=== PATIENT | male | born 1930 | race Caucasian/White ===

== ENCOUNTER 2017-03-04 21:05 | Inpatient (IN) | payer MEDICARE, BC ==
[~2017-03-04] VITALS: Ht 185.4 cm; Wt 90.7 kg
--- NOTE | 2017-03-04 22:17 | NUR ---
PT ARRIVED BY AMBULANCE FROM [facility], PT SITTING UP IN BED A&0 X4. STATED PRESSURE IN LEFT SIDE OF CHEST CAUSING PAIN AND PAIN IS AT A 7 FROM SCALE OF 0-10. ASKED PT TO CHANGE INTO HOSPITAL GOWN WHILE I CALLED ER REGISTRAR FOR FURTHER ORDERS
--- NOTE | 2017-03-04 23:12 | NUR ---
SPOKE TO IVON IN REGARDS TO DIRECT ADMIT. 10MG OF HYDROCODONE ORDERED Q6 PRN PAIN, ADVISED TO CONSULT RENE AND SURGERY IN CASE NEEDED TO HAVE FLUID DRAINED. SPOKE TO RENE AND ADVISED TO HAVE CHEST XRAY DONE IN THE MORNING,
[2017-03-04] MEDS ORDERED: FLOMAX0.4 MG PO (23:30)
[2017-03-04] MEDS ORDERED: METOPROLOL TART25 MG PO (23:31)
[2017-03-04] MEDS ORDERED: ICAPS AREDS1 TAB.SA PO (23:32)
[2017-03-04] MEDS ORDERED: ICAPS MV TAB1 TAB.EC PO (23:33)
[2017-03-04 23:37] VITALS: BP 139/76; BMI 26.4
[2017-03-04] MEDS ORDERED: ZOCOR80 MG PO (23:37)
[2017-03-04] MEDS ORDERED: ASPIRIN81 MG PO (23:38)
[2017-03-05 04:00] VITALS: BP 141/80
--- NOTE | 2017-03-05 07:15 | NUR ---
REPORT RECEIVED FROM HAM SMOKER NURSE. CALL LIGHT IN REACH.
[2017-03-05 08:15] VITALS: BP 122/80
--- NOTE | 2017-03-05 09:15 | NUR ---
ASSESSMENT COMPLETED. CALL LIGHT IN REACH. WILL CONTINUE WITH PLAN OF CARE.
[2017-03-05 10:37] LABS: BASOPHILS 0.7 % (0-2); EOSINOPHILS 2.3 % (0-7); HEMATOCRIT 36.1 % (42.0-54.0); HEMOGLOBIN 11.6 g/dL (13.5-17.5); IMMATURE GRANULOCYTES 0.1 % (0-5); LYMPHOCYTES 14.8 % (15-50); MCH 29.6 pg (26.0-34.0); MCHC 32.1 g/dL (31.0-37.0); MCV 92.1 fL (80.0-100.0); MEAN PLATELET VOLUME 8.5 fL (7.4-10.4); MONOCYTES 12.7 % (2-11); NEUTROPHILS 69.4 % (40-80); PLATELET COUNT 325 10x3/uL (130-400); RBC 3.92 10x6/uL (4.20-6.10); RDW 14.3 % (11.5-14.5); WBC 9.1 10x3/uL (4.8-10.8)
[2017-03-05 10:58] LABS: APTT 29.3 SECONDS (22.8-39.4); INR 1.07 (0.85-1.17); PROTIME 13.7 SECONDS (11.6-15.0)
[2017-03-05 11:00] LABS: ALBUMIN 2.7 g/dL (3.4-5.0); ANION GAP 10.8 mmol/L (8-16); BILIRUBIN - TOTAL 0.6 mg/dL (0.2-1.3); CALCIUM 8.8 mg/dL (8.5-10.1); CARBON DIOXIDE 27.6 mmol/L (21.0-32.0); CREATININE - SERUM 1.2 mg/dL (0.6-1.3); POTASSIUM - SERUM 4.4 mmol/L (3.5-5.1)
--- NOTE | 2017-03-05 11:10 | NUR ---
DENIES NEEDS AT THIS TIME. CALL LIGHT IN REACH. IN ROOM.
--- NOTE | 2017-03-05 12:22 | NUR ---
AM MEDS ADMINISTERED. CALL LIGHT IN REACH. AT BEDSIDE.
[2017-03-05 12:33] VITALS: BP 129/71
[2017-03-05 12:34] VITALS: Ht 185.4 cm; Wt 90.7 kg
--- NOTE | 2017-03-05 13:07 | NUR ---
RESTING QUIETLY IN BED. VISITING WITH FAMILY.
--- NOTE | 2017-03-05 14:40 | NUR ---
TO SPECIALS VIA BED.
--- NOTE | 2017-03-05 15:42 | NUR ---
BACK IN ROOM AT THIS TIME. SPEECH IN ROOM FOR SWALLOW STUDY.
--- NOTE | 2017-03-05 16:09 | NUR ---
C/O PAIN OF 5 AND REQUESTING PAIN PILL. INFORMED PATIENT THAT HE CAN ONLY HAVE THE PAIN PILL EVERY 6 HOURS AND IT IS TOO SOON. MORPHINE [address] ROOM[address] LÓPEZ ALSO IN ROOM TO SPEAK WITH PATIENT.
[2017-03-05 16:17] VITALS: BP 122/70
--- NOTE | 2017-03-05 18:55 | NUR ---
[place] HAT PLACED IN BR FOR STOOL SAMPLE, SPUTUM CUP GIVEN TO PATIENT FOR SAMPLE, AND IS GIVEN TO PATIENT WITH RETURN DEMONSTRATION. NO OTHER CHANGES IN INITIAL ASSESSMENT. CALL LIGHT IN REACH. IN ROOM. WILL CONTINUE WITH PLAN OF CARE.
[2017-03-05 19:40] LABS: NEUT - BF 10 %
[2017-03-05 20:00] VITALS: BP 104/59
[2017-03-06] VITALS: BP 110/62
[2017-03-06 04:00] VITALS: BP 101/59
[2017-03-06 05:47] LABS: BASOPHILS 0.2 % (0-2); EOSINOPHILS 1.4 % (0-7); HEMATOCRIT 33.7 % (42.0-54.0); HEMOGLOBIN 11.1 g/dL (13.5-17.5); IMMATURE GRANULOCYTES 0.1 % (0-5); LYMPHOCYTES 12.2 % (15-50); MCH 30.1 pg (26.0-34.0); MCHC 32.9 g/dL (31.0-37.0); MCV 91.3 fL (80.0-100.0); MEAN PLATELET VOLUME 8.8 fL (7.4-10.4); MONOCYTES 11.6 % (2-11); NEUTROPHILS 74.5 % (40-80); PLATELET COUNT 334 10x3/uL (130-400); RBC 3.69 10x6/uL (4.20-6.10); RDW 14.1 % (11.5-14.5); WBC 9.4 10x3/uL (4.8-10.8)
[2017-03-06 06:22] LABS: % SATURATION 10 % (15-55); IRON 21 ug/dl (35-150); TOTAL IRON BIND CAPACITY 197 ug/dl (260-445); UNSAT IRON BIND CAPACITY 176 ug/dl (150-375)
[2017-03-06 06:37] LABS: ALBUMIN 2.4 g/dL (3.4-5.0); ANION GAP 12.9 mmol/L (8-16); BILIRUBIN - TOTAL 0.5 mg/dL (0.2-1.3); C-REACTIVE PROTEIN 3.1 mg/dL (0.0-0.9); CALCIUM 8.4 mg/dL (8.5-10.1); CARBON DIOXIDE 25.3 mmol/L (21.0-32.0); CREATININE - SERUM 1.4 mg/dL (0.6-1.3); POTASSIUM - SERUM 4.2 mmol/L (3.5-5.1); PROTEIN - SERUM 6.2 g/dL (6.4-8.2)
[2017-03-06 07:58] VITALS: BP 110/60
--- NOTE | 2017-03-06 08:45 | NUR ---
ASSESSMENT PER FLOW SHEET.PT WITHOUT DISTRESS. DENIES NEEDS AT PRESENT.PAIN 7/10 TO LEFT SIDE,PAIN MEDS ORDERED PER MAR.CALL LIGHT IN REACH
[2017-03-06 12:43] VITALS: BP 129/54
[2017-03-06 15:49] VITALS: BP 109/63
--- NOTE | 2017-03-06 18:33 | NUR ---
REMAINS WITHOUT NEEDS,WITHOUT CANGE.CONT PLAN OF CARE
[2017-03-06 20:00] VITALS: BP 97/59
[2017-03-07] VITALS: BP 100/60
[2017-03-07 04:00] VITALS: BP 116/65
[2017-03-07 05:56] LABS: BASOPHILS 0.3 % (0-2); EOSINOPHILS 3.3 % (0-7); HEMATOCRIT 34.7 % (42.0-54.0); IMMATURE GRANULOCYTES 0.2 % (0-5); LYMPHOCYTES 13.4 % (15-50); MCH 29.1 pg (26.0-34.0); MCHC 31.7 g/dL (31.0-37.0); MCV 91.8 fL (80.0-100.0); MEAN PLATELET VOLUME 8.6 fL (7.4-10.4); MONOCYTES 13.5 % (2-11); NEUTROPHILS 69.3 % (40-80); PLATELET COUNT 334 10x3/uL (130-400); RBC 3.78 10x6/uL (4.20-6.10); RDW 14.3 % (11.5-14.5)
[2017-03-07 06:39] LABS: ALBUMIN 2.5 g/dL (3.4-5.0); ANION GAP 11.7 mmol/L (8-16); BILIRUBIN - TOTAL 0.51 mg/dL (0.2-1.3); CALCIUM 8.5 mg/dL (8.5-10.1); CARBON DIOXIDE 26.4 mmol/L (21.0-32.0); CREATININE - SERUM 1.3 mg/dL (0.6-1.3); POTASSIUM - SERUM 4.1 mmol/L (3.5-5.1); PROTEIN - SERUM 6.1 g/dL (6.4-8.2)
[2017-03-07 08:30] VITALS: BP 99/63
--- NOTE | 2017-03-07 09:05 | NUR ---
REPORT RECEIVED FROM MARIANELA OSWALD.
[2017-03-07 09:08] LABS: AFB SPECIMEN PROCESSING Concentration (())
--- NOTE | 2017-03-07 10:30 | NUR ---
ASSESSMENT COMPLETED. AM MEDS ADMINISTERED. CALL LIGHT IN REACH. WILL CONTINUE WITH PLAN OF CARE.
--- NOTE | 2017-03-07 12:05 | NUR ---
NOON MEDS ADMINISTERED PER ORDER. AT BEDSIDE. CALL LIGHT IN REACH.
[2017-03-07 12:12] VITALS: BP 117/67
--- NOTE | 2017-03-07 12:17 | NUR ---
REQUESTING MORPHINE IV. ADMINISTERED PER ORDER.
--- NOTE | 2017-03-07 13:20 | NUR ---
NO NEEDS VOICED AT THIS TIME. CALL LIGHT IN REACH.
--- NOTE | 2017-03-07 15:45 | NUR ---
MORPHINE 2 MG SIVP PER C/O PAIN OF 8. CALL LIGHT IN REACH.
[2017-03-07 16:08] VITALS: BP 114/58
--- NOTE | 2017-03-07 17:49 | NUR ---
STOOL SAMPLE COLLECTED AND SENT TO LAB FOR OB.
--- NOTE | 2017-03-07 18:13 | NUR ---
NO CHANGES IN INITIAL ASSESSMENT. CALL LIGHT IN REACH. WILL CONTINUE WITH PLAN OF CARE.
[2017-03-07 20:34] VITALS: BP 102/63
[2017-03-08] VITALS (9 sets, daily range): BP systolic 101–131; BP diastolic 62–71
--- NOTE | 2017-03-08 02:00 | NUR ---
PT C/O LEFT CHEST PAIN 8/10 AND DIFFICULY URINATING. GAVE MORPHINE 2 MG IVP AND BLADDER SCANNED 784 ML. CALLED ELECTRICAL REPAIRER, TUSHAR TO REQUEST ORDER FOR ZAMORA FROM ER DOCTOR. WAITING RESPONSE.
--- NOTE | 2017-03-08 02:56 | NUR ---
PERFORMED IN/OUT CATH. RECEIVED BACK APPROX 750 MLS STRAW COLOR URINE. SENT SPECIMEN TO LAB FOR UA. PT SAY HE "FEELS RELIEVED." NO OTHER NEEDS. WILL CONTINUE TO MONITOR.
[2017-03-08 03:21] LABS: APPEARANCE CLEAR (CLEAR); BILIRUBIN NEGATIVE (NEGATIVE); COLOR YELLOW (YELLOW); GLUCOSE NEGATIVE (NEGATIVE); KETONE NEGATIVE (NEGATIVE); NITRITE NEGATIVE (NEGATIVE); PROTEIN NEGATIVE (NEGATIVE); UROBILINOGEN NORMAL (NORMAL); WHITE CELLS - URINE NSEEN /hpf (0-5)
[2017-03-08 05:07] LABS: BASOPHILS 0.4 % (0-2); EOSINOPHILS 4.6 % (0-7); HEMATOCRIT 34.1 % (42.0-54.0); HEMOGLOBIN 10.9 g/dL (13.5-17.5); IMMATURE GRANULOCYTES 0.3 % (0-5); LYMPHOCYTES 11.3 % (15-50); MCH 29.3 pg (26.0-34.0); MCV 91.7 fL (80.0-100.0); MEAN PLATELET VOLUME 8.5 fL (7.4-10.4); MONOCYTES 13.8 % (2-11); NEUTROPHILS 69.6 % (40-80); PLATELET COUNT 323 10x3/uL (130-400); RBC 3.72 10x6/uL (4.20-6.10); RDW 14.4 % (11.5-14.5)
[2017-03-08 05:19] LABS: ALBUMIN 2.5 g/dL (3.4-5.0); ANION GAP 14.4 mmol/L (8-16); BILIRUBIN - TOTAL 0.5 mg/dL (0.2-1.3); CALCIUM 8.6 mg/dL (8.5-10.1); CARBON DIOXIDE 23.6 mmol/L (21.0-32.0); CREATININE - SERUM 1.2 mg/dL (0.6-1.3); PROTEIN - SERUM 6.2 g/dL (6.4-8.2)
[2017-03-08 07:43] LABS: INR 1.1 (0.85-1.17); PROTIME 14.1 SECONDS (11.6-15.0)
[2017-03-08 07:44] LABS: APTT 35.6 SECONDS (22.8-39.4)
--- NOTE | 2017-03-08 08:09 | NUR ---
AWAKE AND ALERT. ORIENTED X3. C/O PAIN TO LEFT SIDE OF CHEST FROM "FLUID". REQUESTED AND GIVEN 2MG MORPHINE SLOW IVP FOR SAME. WILL MONITOR. LUNGS ARE CLEAR ON RIGHT BUT DIMINISHED ON LEFT. NO COUGH NOTED. SKIN IS INTACT WITHOUT REDNESS. IV TO LEFT FOREARM IS PATNET WITHOUT REDNESS AT INSERTION SITE. DENIES NEEDS.
--- NOTE | 2017-03-08 09:57 | NUR ---
OFF UNIT VIA BED FOR PROCEDURE. AT BEDSIDE.
--- NOTE | 2017-03-08 10:01 | NUR ---
PT NOT AVAILABLE AT THE TIME FOR UPDRAFT TX
[2017-03-08 10:12] LABS: ANA REFLEX - DIRECT Negative (Negative)
--- NOTE | 2017-03-08 10:48 | NUR ---
Patient Name: ROMI SARABIA Admission Status: Elective Accout number: [id number] Admission Date: 03-04-2017 : 1930 Admission Diagnosis:PLEURAL EFFUSION, NOT ELSEWHERE CLASSIFIED Attending: BEATRIZ HYDE Current LOS: 4 Anticipated DC Date: Planned Disposition: Home or Self Care Primary Insurance: MEDICARE A & B Discharge Planning Comments: CM met with patient to assess discharge planning needs. Patient's (Velma) was in the room. Patient stated that he lives independently at home in [place] where he plans to return. 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 Patient states that he has a cane, walker, wheelchair and a shower chair at home. He denies any HH and not sure he will need it at discharge. CM will continue to follow and assist as needed with discharge planning needs. PCP: Feli Perez in [place] Vel[place]- [phone] Plant Operator: Lorrie Lee * Is the patient Alert and Oriented? Yes 0 * How many steps to enter\exit or inside your home? 0 0 * PCP feli 0 * Pharmacy [facility] in [place] 0 * Preadmission Environment Home with Family 0 * ADLs Independent 0 * Equipment Cane Rolling Walker Shower Chair Walker Wheelchair 0 * List name and contact numbers for known caregivers / representatives who currently or will assist patient after discharge: Velma () [phone] 0 * Community resources currently utilized None 0 * Additional services required to return to the preadmission environment? Yes 0 * Can the patient safely return to the preadmission environment? Yes
--- NOTE | 2017-03-08 10:50 | NUR ---
CATH RETURNED 900 cc CLEAR YELLOW URINE. SKIN CARE PER STAFF.
--- NOTE | 2017-03-08 11:03 | NUR ---
RETURNED FROM PROCEDURE. SPOKE WITH [facility]. I/O CATH AT THIS TIME USING STERILE TECHNIQUE.
--- NOTE | 2017-03-08 12:00 | NUR ---
ATE ALL OF LUNCH TRAY. AT BEDSIDE. HAS NOT VOIDED OF YET. FLOMAX GIVEN PER ORDERS. WILL MONITOR.
--- NOTE | 2017-03-08 13:18 | NUR ---
NUTRITION F/U CHART REVIEWED. TOLERATING REG DIET WITH GOOD PO INTAKE LUNCH PER NURSING REPORT. WILL CONTINUE TO PROVIDE DIET, HONOR FOOD PREFERENCES. RD FOLLOWING
--- NOTE | 2017-03-08 13:30 | NUR ---
VOIDED 150cc CLEAR YELLOW URINE WITH TRACES OF BLOOD NOTED. DENIES NEEDS FOR NOW.
--- NOTE | 2017-03-08 16:00 | NUR ---
REPORTED UP TO BR PER SELF. UNABLE TO CONTROL URINE FLOW. STATED HE FEELS BETTER NOW THAT HE HAS URINATED. NO FURTHER C/O ABDOMINAL/PELVIC PAIN. WILL CONTINUE TO MONITOR.
--- NOTE | 2017-03-08 18:00 | NUR ---
RESTING QUIETLY IN BED. DENIES NEEDS. NO CHANGES NOTED.
--- NOTE | 2017-03-09 02:56 | NUR ---
2000) REC'D. IN BED DR. PANDA HERE NEW ORDERS REC'D.STATES FEELS SO MUCH BETTER. WILL CONTINUE TO MONITOR FOR ANY CHGES. AND FOLLOW CURRENT PLAN OF CARE.
[2017-03-09 04:00] VITALS: BP 127/74
[2017-03-09 05:30] LABS: BASOPHILS 0.2 % (0-2); EOSINOPHILS 3.9 % (0-7); HEMATOCRIT 33.3 % (42.0-54.0); HEMOGLOBIN 10.7 g/dL (13.5-17.5); IMMATURE GRANULOCYTES 0.2 % (0-5); LYMPHOCYTES 12.7 % (15-50); MCH 29.6 pg (26.0-34.0); MCHC 32.1 g/dL (31.0-37.0); MEAN PLATELET VOLUME 8.7 fL (7.4-10.4); MONOCYTES 11.9 % (2-11); NEUTROPHILS 71.1 % (40-80); PLATELET COUNT 339 10x3/uL (130-400); RBC 3.62 10x6/uL (4.20-6.10); RDW 14.3 % (11.5-14.5); WBC 8.5 10x3/uL (4.8-10.8)
[2017-03-09 06:01] LABS: ALBUMIN 2.2 g/dL (3.4-5.0); ANION GAP 12.8 mmol/L (8-16); BILIRUBIN - TOTAL 0.59 mg/dL (0.2-1.3); CALCIUM 8.4 mg/dL (8.5-10.1); CARBON DIOXIDE 25.4 mmol/L (21.0-32.0); CREATININE - SERUM 1.2 mg/dL (0.6-1.3); POTASSIUM - SERUM 4.2 mmol/L (3.5-5.1)
--- NOTE | 2017-03-09 07:00 | NUR ---
REPORT RECIEVED ASSUMED CARE. PATIENT IN BED WITH IV INTACT. NO COMPLAINTS AT THIS TIME. STATED WOULD LIKE PAIN MED WHEN AVAILABLE. CALL LIGHT WITHIN REACH.
[2017-03-09 08:09] VITALS: BP 138/80
--- NOTE | 2017-03-09 08:15 | NUR ---
ASSESSMENT COMPLETE, VS STABLE. NO COMPLAINTS AT THIS TIME. IV INTACT. CALL LIGHT WITHIN REACH.D RESSING TO BACK CDI.
--- NOTE | 2017-03-09 12:00 | NUR ---
PATIENT SITTING UP EATING AT THIS TIME. NO COMPLAINTS. FAMILY AT BEDSIDE. CALL LIGHT WITHIN REACH.
[2017-03-09 12:43] VITALS: BP 105/58
[2017-03-09] MEDS ORDERED: LEVAQUIN750 MG PO (13:36)
[2017-03-09] MEDS ORDERED: IPRAT-ALBUT 0.5-3 ML UPD ×3 (13:36→16:15)
[2017-03-09] MEDS ORDERED: TESSALON PERLE100 MG PO (13:37)
[2017-03-09] MEDS ORDERED: FERREX 150 PLUS1 CAP PO (13:37)
[2017-03-09] MEDS ORDERED: FLORAJEN3 CAPS460 MG PO (13:38)
[2017-03-09] MEDS ORDERED: FLUTICASONE PRO16 GM NASAL (13:38)
[2017-03-09] MEDS ORDERED: MUCINEX DM ER1 EAC1 PO (13:38)
[2017-03-09] MEDS ORDERED: MIRALAX17 GM PO (13:39)
[2017-03-09] MEDS ORDERED: PROTONIX40 MG PO (13:39)
[2017-03-09] MEDS ORDERED: SENOKOT-S TABLE1 TAB PO (13:41)
[2017-03-09] MEDS ORDERED: OMNICEF300 MG PO (13:41)
[2017-03-09] MEDS ORDERED: HYDROCODONE-APA1 TAB PO (13:51)
--- NOTE | 2017-03-09 14:25 | NUR ---
Patient being discharged home with [facility] ([facility]) signed. Patient also being discharged with a nebulizer. faxed information to [facility]. Imm served. at bedside.
--- NOTE | 2017-03-09 15:00 | NUR ---
AWAITING DR. PANDA TO SIGN PRESCRIPTION FOR DC. NO COMPLAINTS OR SIGNS OF DISTRESS. FAMILY AT BEDSIDE. CALL LIGHT WITHIN REACH.
--- NOTE | 2017-03-09 16:12 | NUR ---
Rec'd call from Yolande with [facility] - she states Dr. Rodarte will not sign home health orders until patient has been seen in the clinic by Dr. Rodarte. I called and spoke with nurse, Milena, at Dr. Rodarte's office. She stated patient would have to be seen prior to home health orders being signed. Patient was scheduled for an initial visit but missed it due to being in the hospital. He was rescheduled for 03/16 @ 1015. Explained patient status & hospitalization - appointment was changed to , 03/11 @ 1400. Milena states they will contact [facility] after they patient on . Notified patient & spouse of appointment change.
[2017-03-09 16:20] VITALS: BP 124/63
--- NOTE | 2017-03-09 17:27 | NUR ---
PATIENT RECIEVED DC INSTRUCTIONS. VERBALIZED UNDERSTANDING. NO QUESTIONS AT THIS TIME. FAMILY AT SIDE. IV REMOVED WITH CATH TIP INTACT. FLU SHOT GIVEN ORDERED. AWAITING WC FOR DC. CALL LIGHT WITHIN REACH.
[2017-03-10 10:20] LABS: FUNGUS STAIN Final report (())
[2017-04-05 13:12] LABS: FUNGUS MYCOLOGY CULTURE Final report (())
[2017-04-23 11:18] LABS: ACID FAST CULTURE Negative (()); ACID FAST SMEAR Negative (())
== END 2017-03-09 17:39 | disposition home or self-care (01) | DRG 194 ==
LOC: D.M2 21:05 → D.MS 22:13
PROVIDERS: General Practice; Internal Medicine Pulmonary Disease; ADMIT Family Medicine
PROC: 0W9B3ZZ Drainage of Left Pleural Cavity, Percutaneous Approach (ICD-10-PCS; principal; 2017-03-05 15:13)
PROC: 0W9B3ZZ Drainage of Left Pleural Cavity, Percutaneous Approach (ICD-10-PCS; 2017-03-08)
DX: J18.9 Pneumonia, unspecified organism (principal); J90 Pleural effusion, not elsewhere classified; J98.11 Atelectasis; J95.811 Postprocedural pneumothorax; N40.0 Benign prostatic hyperplasia without lower urinary tract symptoms; E78.5 Hyperlipidemia, unspecified; K21.9 Gastro-esophageal reflux disease without esophagitis; K59.00 Constipation, unspecified; J31.0 Chronic rhinitis; J32.9 Chronic sinusitis, unspecified; Z87.891 Personal history of nicotine dependence; D50.9 Iron deficiency anemia, unspecified; Y83.8 Other surgical procedures as the cause of abnormal reaction of the patient, or of later complication, without mention of misadventure at the time of the procedure; Y82.8 Other medical devices associated with adverse incidents

== ENCOUNTER 2017-03-15 12:42 | Inpatient (IN) | payer MEDICARE, BC ==
[~2017-03-15] VITALS: Ht 185.4 cm; Wt 83.8 kg
[~2017-03-15 12:42] MED LIST: ASPIRIN81 MG PO; FERREX 150 PLUS1 CAP PO; FLOMAX0.4 MG PO; FLORAJEN3 CAPS460 MG PO; FLUTICASONE PRO16 GM NASAL; HYDROCODONE-APA1 TAB PO; ICAPS AREDS1 TAB.SA PO; ICAPS MV TAB1 TAB.EC PO; IPRAT-ALBUT 0.5-3 ML UPD; LEVAQUIN750 MG PO; METOPROLOL TART25 MG PO; MIRALAX17 GM PO; MUCINEX DM ER1 EAC1 PO; OMNICEF300 MG PO; PROTONIX40 MG PO; SENOKOT-S TABLE1 TAB PO; TESSALON PERLE100 MG PO; ZOCOR80 MG PO
[2017-03-15 17:33] VITALS: BP 111/72; BMI 25.3
--- NOTE | 2017-03-15 17:43 | NUR ---
RECIEVED TO ROOM 2218 FROM ER VIA WHEELCHAIR PT AWAKE AND ALERT ORINETED X 3 LUNGS DIMINISHED LEFT SIDE ALSO COMPLAINS OF PAIN TO LEFT RIBS. PIV TO ERICK SL
[2017-03-15 20:00] VITALS: BP 95/66
--- NOTE | 2017-03-15 20:00 | NUR ---
ASSESSMENT PER FLOWSHEET. IV SALINE LOCKED TO LEFT UPPER ARM SITE CLEAR. SR UP X2 CALL LIGHT WITHIN REACH.
--- NOTE | 2017-03-15 20:45 | NUR ---
C/O LEFT FLANK PAIN RATES PAIN LEVEL #8-10. NO PAIN MEDS ORDERED. NOTIFIED [place] APN FOR DR. HANDY. ORDERS REC'D.
--- NOTE | 2017-03-15 20:52 | NUR ---
DILAUDID 0.5MG IVP GIVEN FOR PAIN CONTROL.
--- NOTE | 2017-03-15 22:00 | NUR ---
RESTING QUIETLY AT THIS TIME. SR UP X2 CALL LIGHT WITHIN REACH.
--- NOTE | 2017-03-16 | NUR ---
EYES CLOSED RESPIRATIONS WITH EASE AND UNLABORED.
--- NOTE | 2017-03-16 03:00 | NUR ---
RESTING QUIETLY DENIES NEEDS.
[2017-03-16 04:00] VITALS: BP 108/69
--- NOTE | 2017-03-16 05:03 | NUR ---
EYES CLOSED RESPIRATIONS WITH EASE AND UNLABORED.
[2017-03-16 06:06] LABS: BASOPHILS 0.5 % (0-2); EOSINOPHILS 3.3 % (0-7); HEMATOCRIT 36.2 % (42.0-54.0); HEMOGLOBIN 11.7 g/dL (13.5-17.5); IMMATURE GRANULOCYTES 0.4 % (0-5); LYMPHOCYTES 16.6 % (15-50); MCH 29.4 pg (26.0-34.0); MCHC 32.3 g/dL (31.0-37.0); MEAN PLATELET VOLUME 8.8 fL (7.4-10.4); MONOCYTES 14.8 % (2-11); NEUTROPHILS 64.4 % (40-80); PLATELET COUNT 366 10x3/uL (130-400); RBC 3.98 10x6/uL (4.20-6.10); RDW 14.1 % (11.5-14.5); WBC 8.1 10x3/uL (4.8-10.8)
[2017-03-16 06:21] LABS: APTT 29.6 SECONDS (22.8-39.4); INR 1.02 (0.85-1.17); PROTIME 13.3 SECONDS (11.6-15.0)
--- NOTE | 2017-03-16 06:28 | NUR ---
MEDS GIVEN PER JUL. UPDRAFT TX GIVEN PER RT TECH AT BEDSIDE.
[2017-03-16 06:30] LABS: ALBUMIN 2.6 g/dL (3.4-5.0); ANION GAP 10.9 mmol/L (8-16); BILIRUBIN - TOTAL 0.33 mg/dL (0.2-1.3); CALCIUM 8.6 mg/dL (8.5-10.1); CARBON DIOXIDE 28.5 mmol/L (21.0-32.0); CREATININE - SERUM 1.3 mg/dL (0.6-1.3); POTASSIUM - SERUM 4.4 mmol/L (3.5-5.1); PROTEIN - SERUM 6.5 g/dL (6.4-8.2)
--- NOTE | 2017-03-16 07:30 | NUR ---
RECIEVED PT DURING WALKING ROUNDS. ASSESSMENT DONE PER FLOWSHEET. PT COMPLAINS OF PAIN, NO MEDICATION TO BE GIVEN UNTIL RETURN FROM CT. BED IN LOW POSITION AND CALL LIGHT WITHIN REACH. WILL CONTINUE TO MONITOR.
[2017-03-16 08:19] VITALS: BP 121/72
--- NOTE | 2017-03-16 09:25 | NUR ---
ORAL PAIN MEDICATION GIVEN PER ORDER AT THIS TIME. WILL CONTINUE TO MONITOR.
[2017-03-16 12:16] VITALS: BP 110/68
[2017-03-16 12:23] VITALS: Ht 185.4 cm; Wt 83.8 kg
[2017-03-16 16:12] VITALS: BP 127/61
[2017-03-16 19:30] VITALS: BP 106/67
--- NOTE | 2017-03-16 20:00 | NUR ---
ASSESSMENT PER FLOW SHEET. IV PATENT LEFT UPPER ARM SALINE LOCKED. SR UP X2 RESTING QUIETLY.
--- NOTE | 2017-03-16 21:44 | NUR ---
C/O PAIN LEFT FLANK RATES PAIN LEVEL #8. DILAUDID 0.5MG IVP GIVEN FOR PAIN CONTROL.
[2017-03-16 23:30] VITALS: BP 107/61
--- NOTE | 2017-03-17 | NUR ---
EYES CLOSED RESPIRATIONS WITH EASE AND UNLABORED.
--- NOTE | 2017-03-17 00:10 | NUR ---
NPO FOR IR PROCEDURE IN AM.
--- NOTE | 2017-03-17 02:30 | NUR ---
EYES CLOSED RESPIRATIONS WITH EAS AND UNLABORED.
[2017-03-17 03:30] VITALS: BP 99/63
--- NOTE | 2017-03-17 04:29 | NUR ---
C/O PAIN LEFT FLANK AREA. DILAUDID 0.5MG IVP GIVEN FOR PAIN CONTROL.
[2017-03-17 05:51] LABS: BASOPHILS 0.7 % (0-2); EOSINOPHILS 3.1 % (0-7); HEMATOCRIT 35.8 % (42.0-54.0); HEMOGLOBIN 11.5 g/dL (13.5-17.5); IMMATURE GRANULOCYTES 0.1 % (0-5); LYMPHOCYTES 17.3 % (15-50); MCH 29.1 pg (26.0-34.0); MCHC 32.1 g/dL (31.0-37.0); MCV 90.6 fL (80.0-100.0); MEAN PLATELET VOLUME 8.6 fL (7.4-10.4); MONOCYTES 11.7 % (2-11); NEUTROPHILS 67.1 % (40-80); PLATELET COUNT 348 10x3/uL (130-400); RBC 3.95 10x6/uL (4.20-6.10); RDW 14.2 % (11.5-14.5); WBC 7.3 10x3/uL (4.8-10.8)
[2017-03-17 06:49] LABS: ALBUMIN 2.6 g/dL (3.4-5.0); ANION GAP 12.6 mmol/L (8-16); BILIRUBIN - TOTAL 0.4 mg/dL (0.2-1.3); CALCIUM 8.8 mg/dL (8.5-10.1); CARBON DIOXIDE 27.7 mmol/L (21.0-32.0); CREATININE - SERUM 1.3 mg/dL (0.6-1.3); POTASSIUM - SERUM 4.3 mmol/L (3.5-5.1); PROTEIN - SERUM 6.4 g/dL (6.4-8.2)
--- NOTE | 2017-03-17 07:30 | NUR ---
RECIEVED PT DURING WALKING ROUNDS, PT RESTING IN BED WITH COMPLAINTS OF PAIN OF A 7 ON A SCALE FO 1-10. MEDICATION TO BE GIVEN PER ORDER. ASSESSMENT DONE PER FLOWSHEET. BED IN LOW POSITION AND CALL LIGHT WITHIN REACH. WILL CONTINUE TO MONITOR.
[2017-03-17 08:10] VITALS: BP 116/71
--- NOTE | 2017-03-17 09:14 | NUR ---
RECEIVED BACK FROM CT AT THIS TIME. PRESSURE DRESSING TO LEFT FLANK WITH NO S/S OF BLEEDING PRESENT. VITAL SIGNS STABLE BP 141/76, PULSE 90, REPSIRATIONS 20, TEMPERATURE 98.2, AND OXYGEN SATURATION 95% ON ROOM AIR. SCHEDULED MEDICATIONS ADMINISTERED WELL PRN DILAUDID FOR PAIN. IV TO LEFT UPPER ARM REMAINS PATENT.
[2017-03-17 12:11] VITALS: BP 102/68
[2017-03-17 17:43] VITALS: BP 112/60
[2017-03-17 19:30] VITALS: BP 106/67
--- NOTE | 2017-03-17 20:00 | NUR ---
ASSESSMENT PER FLOWSHEET. IV PATENT LEFT UPPER ARM OF NS AT [employer] WITH SALES AND SERVICE REPRESENTATIVE DILAUDID IN USE WITH SETTINGS AT 0.2MG Q10MIN WITH 4MG Q4H L/O. DRESSING TO LEFT FLANK AREA C/D/I POST THORACENTESIS SITE.
--- NOTE | 2017-03-17 22:00 | NUR ---
MEDS GIVEN PER MAR.
[2017-03-17 23:30] VITALS: BP 85/56
--- NOTE | 2017-03-18 | NUR ---
EYES CLOSED RESPIRATIONS WITH EASE AND UNLABORED.
--- NOTE | 2017-03-18 03:00 | NUR ---
RESTING QUIETLY DENIES NEEDS USING PHYSICIAN/ALLERGY/IMMUNOLOGY FOR PAIN CONTROL. UP TO BR VOIDS WELL
[2017-03-18 04:00] VITALS: BP 96/58
[2017-03-18 05:41] LABS: BASOPHILS 0.5 % (0-2); EOSINOPHILS 4.5 % (0-7); HEMATOCRIT 34.8 % (42.0-54.0); HEMOGLOBIN 11.2 g/dL (13.5-17.5); IMMATURE GRANULOCYTES 0.1 % (0-5); LYMPHOCYTES 18.6 % (15-50); MCH 29.4 pg (26.0-34.0); MCHC 32.2 g/dL (31.0-37.0); MCV 91.3 fL (80.0-100.0); MEAN PLATELET VOLUME 8.6 fL (7.4-10.4); MONOCYTES 14.3 % (2-11); PLATELET COUNT 338 10x3/uL (130-400); RBC 3.81 10x6/uL (4.20-6.10); RDW 14.6 % (11.5-14.5); WBC 7.4 10x3/uL (4.8-10.8)
[2017-03-18 06:08] LABS: ALBUMIN 2.5 g/dL (3.4-5.0); ANION GAP 11.6 mmol/L (8-16); BILIRUBIN - TOTAL 0.5 mg/dL (0.2-1.3); CALCIUM 8.8 mg/dL (8.5-10.1); CARBON DIOXIDE 27.9 mmol/L (21.0-32.0); CREATININE - SERUM 1.3 mg/dL (0.6-1.3); POTASSIUM - SERUM 4.5 mmol/L (3.5-5.1); PROTEIN - SERUM 6.1 g/dL (6.4-8.2)
--- NOTE | 2017-03-18 07:00 | NUR ---
REPORT RECIEVED ASSUMED CARE. PATIENT IN BED WITH I VINTACT. NO COMPLAINTS AT THIS TIME. CALL LIGHT WITHIN REACH.
[2017-03-18 09:22] VITALS: BP 106/63
[2017-03-18 12:31] LABS: APTT 29.4 SECONDS (22.8-39.4); INR 1.04 (0.85-1.17); PROTIME 13.5 SECONDS (11.6-15.0)
--- NOTE | 2017-03-18 13:51 | NUR ---
NUTRITION F/U CHART REVIEWED. PT TOLERATING REG DIET WITH 75% INTAKE RECENT MEALS. WILL CONTINUE TO PROVIDE DIET, MONITOR INTAKE. RD FOLLOWING
[2017-03-18 15:59] VITALS: BP 106/62
--- NOTE | 2017-03-18 16:50 | NUR ---
Patient Name: ROMI SARABIA Admission Status: ER Accout number: [id number] Admission Date: 03-16-2017 : 1930 Admission Diagnosis: Attending: KANWLA HANDY Current LOS: 2 Anticipated DC Date: Planned Disposition: Home with Home Health Primary Insurance: MEDICARE A & B Discharge Planning Comments: CM MET WITH PATIENT TO ASSESS DISCHARGE PLANNING NEEDS. PATIENT LIVES IN [place] WITH HIS WHERE HE WILL RETURN AFTER DISCHARGE. PATIENT STATED HIS HOME IS SAFE TO RETURN TOO. THERE ARE NOT ANY STEPS TO ENTER IN HIS HOME. HE HAS A CANE, WALKER, WHEELCHAIR, NEBULIZER, AND SHOWER CHAIR AT HOME. HE IS CURRENT WITH [employer]. CM WILL CONTINUE TO FOLLOW AND ASSIST WITH DISCHARGE PLANNING NEEDS. PCP: THALIA GONSALVES IN [place] FER[place]ND[place] () [phone] Product Applications Engineer: Lorrie Lee * Is the patient Alert and Oriented? Yes 0 * How many steps to enter\exit or inside your home? 0 0 * PCP THALIA 0 * [facility] IN [place] 0 * Preadmission Environment Home with Family 0 * ADLs Independent 0 * Equipment Cane Rolling Walker Shower Chair Walker Wheelchair 0 * List name and contact numbers for known caregivers / representatives who currently or will assist patient after discharge: FER[place]O -() [phone] 0 * Community resources currently utilized Home Health 0 * Please name any agencies selected above. [facility] 0 * Additional services required to return to the preadmission environment? Yes 0 * Can the patient safely return to the preadmission environment? Yes 0 * Has this patient been hospitalized within the prior 30 days at any hospital? Yes 0 Grand Total: 0
--- NOTE | 2017-03-18 19:00 | NUR ---
REPORT RECEIVED AND CARE OF PT ASSUMED. PT SITTING UP ON SIDE OF BED WATCHING TV. C/O INDIGESTION....WILL GIVE PRN'S.
[2017-03-18 20:00] VITALS: BP 115/68
--- NOTE | 2017-03-18 20:02 | NUR ---
SCHEDULED PROTONIX, TUMS AND BENADRYL GIVEN BY DAY SHIFT NURSE, FOR PT C/O INDIGESTION AND HEARTBURN.
--- NOTE | 2017-03-18 21:25 | NUR ---
HS MEDICATIONS GIVEN. WILL CONTINUE TO MONITOR FOR NEEDS.
[2017-03-19] VITALS (22 sets, daily range): BP systolic 91–158; BP diastolic 41–94
--- NOTE | 2017-03-19 06:20 | NUR ---
HIBACLENS SHOWER PERFORMED. PT SHAVED PER PRE OP ORDERS. PRE OP MEDICATIONS GIVEN.
--- NOTE | 2017-03-19 06:20 | NUR ---
PT TAKEN TO SURGERY. FAMILY MEMBERS FOLLOWING. HEARING AIDS AND OTHER VALUABLES WITH SPOUSE.
[2017-03-19 06:29] LABS: BASOPHILS 0.4 % (0-2); EOSINOPHILS 4.1 % (0-7); HEMATOCRIT 36.9 % (42.0-54.0); HEMOGLOBIN 11.8 g/dL (13.5-17.5); IMMATURE GRANULOCYTES 0.3 % (0-5); LYMPHOCYTES 16.2 % (15-50); MCH 29.2 pg (26.0-34.0); MCV 91.3 fL (80.0-100.0); MEAN PLATELET VOLUME 8.5 fL (7.4-10.4); MONOCYTES 13.1 % (2-11); NEUTROPHILS 65.9 % (40-80); PLATELET COUNT 336 10x3/uL (130-400); RBC 4.04 10x6/uL (4.20-6.10); RDW 14.4 % (11.5-14.5); WBC 9.2 10x3/uL (4.8-10.8)
[2017-03-19 06:51] LABS: APPEARANCE CLEAR (CLEAR); BILIRUBIN NEGATIVE (NEGATIVE); COLOR YELLOW (YELLOW); GLUCOSE NEGATIVE (NEGATIVE); KETONE NEGATIVE (NEGATIVE); NITRITE NEGATIVE (NEGATIVE); PROTEIN NEGATIVE (NEGATIVE); SPECIFIC GRAVITY 1.015 (1.005-1.020); UROBILINOGEN NORMAL (NORMAL)
[2017-03-19 06:52] LABS: BACTERIA MODERATE /hpf (NONE SEEN); EPITHELIAL CELLS 0-5 /hpf (0-5); MUCUS <1+ /lpf (NONE SEEN); RED CELLS - URINE 0-5 /hpf (0-5)
[2017-03-19 06:56] LABS: ALBUMIN 2.7 g/dL (3.4-5.0); ANION GAP 10.7 mmol/L (8-16); BILIRUBIN - TOTAL 0.6 mg/dL (0.2-1.3); CARBON DIOXIDE 27.6 mmol/L (21.0-32.0); CREATININE - SERUM 1.3 mg/dL (0.6-1.3); POTASSIUM - SERUM 4.3 mmol/L (3.5-5.1); PROTEIN - SERUM 6.5 g/dL (6.4-8.2)
--- NOTE | 2017-03-19 07:00 | NUR ---
REPORT RECIEVED, PATIENT IN SURGERY.
--- NOTE | 2017-03-19 11:00 | NUR ---
RECIEVED PT FROM OR. VSS. COMPLAINING OF PAIN. ANESTHESIA NOTIFIED ABOUT EPIDURAL.
--- NOTE | 2017-03-19 15:00 | NUR ---
SLEEPING NO DISTRESS NOTED. SR UP X 2.
--- NOTE | 2017-03-19 17:00 | NUR ---
CONTINUES TO SLEEP. AWAKENS FOR ICE CHIPS.
--- NOTE | 2017-03-19 18:40 | NUR ---
DR RIVAS NOTIFIED OF TEMP 101.7. TYLENOL GIVEN,.
--- NOTE | 2017-03-19 19:30 | NUR ---
ASSESSMENT COMPLETED. SEE ASSESSMENT FLOWSHEET FOR DETAILS. EPIDURAL RESTARTED DUE TO SBP BACK TO BASELINE. ORIENTED X4. LEFT RADIAL A-LINE POSITIONAL. POSTERIOR CHEST TUBE PUTTING OUT SEROSANG DRAINAGE AND ANTERIOR CLEAR COLORED DRAINAGE. POSTERIOR WITH POSITIVE AIR LEAK. WILL MONITOR.
--- NOTE | 2017-03-19 20:05 | NUR ---
DIVERS IN AT BEDSIDE. NO FAMILY HERE TO SPEAK WITH OR IN WAITING ROOM. HE WILL ATTEMPT AGAIN TOMORROW. WILL MONITOR.
--- NOTE | 2017-03-19 21:10 | NUR ---
NPO STATUS. A FEW ICE CHIPS HERE AND THERE. WILL AWAIT AM TO GIVE PO MEDS. WILL MONITOR.
--- NOTE | 2017-03-19 23:00 | NUR ---
REASSESSMENT COMPLETED. SEE ASSESSMENT FLOWSHEET. EPIDURAL PUMP AND CT OUTPUT ASSESSED. NO NEW ACUTE CHANGES IN ASSESSMENT. WILL MONITOR.
[2017-03-20] VITALS (56 sets, daily range): BP systolic 78–129; BP diastolic 37–61
--- NOTE | 2017-03-20 00:14 | NUR ---
MIDNIGHT TYLENOL GIVEN PO. SWALLOWED WITHOUT DIFFICULTY. WHEN ENTERING ROOM WAS PUTTING O2 SENSOR IN HIS MOUTH. PAUSED EPIDURAL PUMP DUE TO SBP 85 ON A-LINE AND 88 ON NIBP. INCREASED INDIGO GTT BACK TO 20ML/HR. WILL MONITOR.
--- NOTE | 2017-03-20 00:30 | NUR ---
EPIDURAL RESTARTED. DOROTHY WITH R.T. AT BEDSIDE TO DRAW ABG'S. WILL MONITOR.
--- NOTE | 2017-03-20 02:15 | NUR ---
REPOSITIONED SELF IN BED. REMOVED PILLOW FROM BEHIND BACK. AFTER MOVEMENT B/P DECREASED ON BOTH NIBP AND A-LINE. STOPPED EPIDURAL TEMPORARILY. TOLERATING SIPS OF ICE WATER. C/O SORE THROAT. WILL MONITOR.
--- NOTE | 2017-03-20 02:35 | NUR ---
EPIDURAL TURNED BACK ON.
--- NOTE | 2017-03-20 04:00 | NUR ---
REASSESSMENT COMPLETED. SEE ASSESSMENT FLOWSHEET. POSTERIOR TUBE WITH SMALL AIR LEAK WELL ANTERIOR. WILL MONITOR.
--- NOTE | 2017-03-20 05:25 | NUR ---
ABG'S COMPLETED. DOROTHY WITH R.T. DECREASED O2 TO 1LPM/NC. TITRATING INDIGO DOWN. WILL MONITOR.
--- NOTE | 2017-03-20 05:30 | NUR ---
ZAMORA CATHETER CARE DONE WITH CLEANING KIT. TOLERATED WELL. DECREASED INDIGO TO 15ML/HR. LEFT RADIAL A-LINE VERY POSITIONAL AND HARD TO DRAW BLOOD FROM. GOT AM LABS WITH ABG DRAW. WILL MONITOR.
[2017-03-20 05:35] LABS: BASOPHILS 0.2 % (0-2); EOSINOPHILS 0.1 % (0-7); HEMATOCRIT 32.8 % (42.0-54.0); HEMOGLOBIN 10.6 g/dL (13.5-17.5); IMMATURE GRANULOCYTES 0.4 % (0-5); LYMPHOCYTES 6.5 % (15-50); MCH 29.4 pg (26.0-34.0); MCHC 32.3 g/dL (31.0-37.0); MCV 91.1 fL (80.0-100.0); MONOCYTES 12.5 % (2-11); NEUTROPHILS 80.3 % (40-80); PLATELET COUNT 365 10x3/uL (130-400); RDW 14.5 % (11.5-14.5)
[2017-03-20 05:56] LABS: ALBUMIN 2.1 g/dL (3.4-5.0); BILIRUBIN - TOTAL 0.71 mg/dL (0.2-1.3); CALCIUM 8.3 mg/dL (8.5-10.1); CARBON DIOXIDE 21.5 mmol/L (21.0-32.0); CREATININE - SERUM 1.3 mg/dL (0.6-1.3); POTASSIUM - SERUM 4.5 mmol/L (3.5-5.1); PROTEIN - SERUM 5.9 g/dL (6.4-8.2)
[2017-03-20 05:58] LABS: WBC 16.5 10x3/uL (4.8-10.8)
--- NOTE | 2017-03-20 06:35 | NUR ---
DR. RIVAS MADE AWARE VIA PHONE CALL OF POSTERIOR CHEST TUBE AIR LEAK AND 500ML OUTPUT OVER LAST 12 HOURS. NO NEW ORDERS AT THIS TIME.
--- NOTE | 2017-03-20 10:42 | NUR ---
ASSISTED WITH BEDPAN. SMALL BM PRODUCED. REPOSITIONED. CL IN REACH.
--- NOTE | 2017-03-20 11:10 | NUR ---
DR. HURLEY AT BEDSIDE. NO CURRENT NEEDS.
--- NOTE | 2017-03-20 13:40 | NUR ---
FAMILY AT BEDSIDE. NO CURRENT NEEDS.
--- NOTE | 2017-03-20 15:13 | NUR ---
PT ATTEMPTING TO GET OUT OF BED. ORIENTED X4. R.T. AT BEDSIDE FOR TREATMENT. BED ALARM ON AND FUNCTIONING.
--- NOTE | 2017-03-20 15:30 | NUR ---
BED BATH AND LINEN CHANGE COMPLETED. DRESSING CHANGE TO CHEST TUBES COMPLETED.
--- NOTE | 2017-03-20 19:56 | NUR ---
ITCHING HEAD NOTED DURING ASSESSMENT. WHEN ASKED IF HE WAS ITCHING REPORTED, "YES". IV BENADRYL GIVEN. CONTINUOUSLY MOVING IN BED AND ATTEMPTING TO GET OUT OF BED. VISUAL HALLUCINATIONS OF "FROGS AND TROLLS" SPOKEN OF. DISORIENTED TO PLACE. REORIENTED. WILL MONITOR.
--- NOTE | 2017-03-20 21:23 | NUR ---
DR. RIVAS MADE AWARE OF KINKED A-LINE AND ATTEMPTING TO FIX ALONG WITH CONFUSION AND NEEDING RESTRAINTS-SOFT BILATERAL WRIST.
--- NOTE | 2017-03-20 21:40 | NUR ---
A-LINE SUTURES REMOVED PARTIALLY DUE TO MOVEMENT ON A-LINE CATHETER, EVELYN AWARE AND AT THIS TIME THE A-LINE IS WORKING PROPERLY. NIBP CUFF ALSO BEING TAKEN FOR COMPARISION. WILL MONITOR.
--- NOTE | 2017-03-20 22:20 | NUR ---
PLACED ONTO BEDPAN DUE TO REPORTING HE NEEDED THE COMMODE. PASTY, LIGHT BROWN, SEMI-SOLID BM CLEANSED FROM PERINEAL AREA. MORE CALM AT THIS TIME. REYNA'S BUTT PASTE APPLIED TO PERINEAL AREA. DECREASED INDIGO GTT TO 5ML/HR. RESTRAINTS REMAIN IN USE AND WILL MONITOR.
--- NOTE | 2017-03-20 23:40 | NUR ---
INCREASED INDIGO GTT BACK TO 10ML/HR DUE TO DECLINE IN B/P IN BOTH ARTERIAL AND NIBP. REASSESSMENT COMPLETED. SEE ASSESSMENT FLOWSHEET.
[2017-03-21] VITALS (56 sets, daily range): BP systolic 74–133; BP diastolic 36–85
--- NOTE | 2017-03-21 00:40 | NUR ---
PULLING ON ZAMORA CATHETER ON WRIST RESTRAINTS. PULLED UP AND REOISITIONED IN BED. CONSTANTLY TALKING TO HIMSELF AND NOT MAKING SENSE. REORIENTED.
--- NOTE | 2017-03-21 01:35 | NUR ---
BECOMING SLIGHTLY AGGRESSIVE AND MOVES IMPULSIVELY. WILL MONITOR.
--- NOTE | 2017-03-21 03:10 | NUR ---
DOROTHY Son AT BEDSIDE TO HELP WATCH HIM NOT TO PULL OUT LINES WHILE NURSING SEES OTHER PATIENT. PROVIDES PUDDING AND COFFEE TO PATIENT AND EATS PUDDING 100%. SIPS OF BLACK COFFEE GIVEN. SEEING WATERBUGS ON THE CEILING. REORIENTED TO THE HALLUCINATIONS. IS ORIENTED TO PLACE, TIME AND SITUATION CURRENTLY. WILL MONITOR.
--- NOTE | 2017-03-21 03:50 | NUR ---
REASSESSMEMT COMPLETED. SEE ASSESSMENT FLOWSHEET. SEEING WATERBUGS ON THE CEILING AND SAYS HE NEEDS TO GET UP TO KILL THEM.
--- NOTE | 2017-03-21 04:55 | NUR ---
INDIGO GTT RESTARTED AT 5ML/HR PER CARLOS AWAN RN FOR SBP IN THE 70-80'S ON ARTERIAL AND NIBP CUFF. WILL MONITOR.
[2017-03-21 05:31] LABS: BASOPHILS 0.1 % (0-2); EOSINOPHILS 0.6 % (0-7); HEMOGLOBIN 9.5 g/dL (13.5-17.5); IMMATURE GRANULOCYTES 0.2 % (0-5); LYMPHOCYTES 6.5 % (15-50); MCH 29.6 pg (26.0-34.0); MCHC 32.8 g/dL (31.0-37.0); MCV 90.3 fL (80.0-100.0); MEAN PLATELET VOLUME 8.9 fL (7.4-10.4); MONOCYTES 10.7 % (2-11); NEUTROPHILS 81.9 % (40-80); PLATELET COUNT 316 10x3/uL (130-400); RBC 3.21 10x6/uL (4.20-6.10); RDW 14.6 % (11.5-14.5); WBC 13.9 10x3/uL (4.8-10.8)
[2017-03-21 05:43] LABS: ALBUMIN 1.9 g/dL (3.4-5.0); BILIRUBIN - TOTAL 0.51 mg/dL (0.2-1.3); CALCIUM 8.2 mg/dL (8.5-10.1); CREATININE - SERUM 1.2 mg/dL (0.6-1.3); PHOSPHOROUS 2.7 mg/dL (2.5-4.9); PROTEIN - SERUM 5.5 g/dL (6.4-8.2)
--- NOTE | 2017-03-21 06:35 | NUR ---
CHANGED LINENS AND PERINEAL AREA CLEANSED OF SMEAR OF LIGHT BROWN BM. CLAIRE SINGLE CHAMBER CHEST TUBE PLACED IN ROOM FROM WHEN POSTERIOR TUBE FULL. APPROX. 40ML LEFT IN CANNISTER. PULLED UP IN BED AND REPOSITIONED. WILL MONITOR.
--- NOTE | 2017-03-21 08:20 | NUR ---
AT BEDSIDE. UPDATE GIVEN. MEAL TRAY SET UP PROVIDED. ASSISTING WITH MEAL.
--- NOTE | 2017-03-21 10:48 | NUR ---
DR. HURLEY AT BEDSIDE. EPIDURAL DECREASED FROM 7CC TO 4CC.
--- NOTE | 2017-03-21 13:27 | NUR ---
A-LINE DC'D PER ORDER. MANUAL PRESSURE APPLIED TIMES 5 MINUTES. CLEAR DRESSING APPLIED. NO S/SX OF BLEEDING OR HEMATOMA NOTED. FAMILY DISCUSSING AT LENGTH WITH DR. ALMAZAN.
--- NOTE | 2017-03-21 13:37 | OP ---
PATIENT NAME: ROMI SARABIA MEDICAL RECORD: [id number] :30 LOCATION:[id number] ADMISSION DATE:03/16/17 SURGEON: BRENDON HOGUE MD DATE OF OPERATION: 03/19/2017 SURGEON: Brendon Hogue MD ANESTHESIA: General endotracheal, Dr. Pizano. OPERATIONS PERFORMED: 1. Left thoracotomy and decortication of the left lung. 2. Biopsies of the chest wall and visceral pleura. 3. Talc pleurodesis. 4. Flexible fiberoptic bronchoscopy and placement of a double lumen tube. PREOPERATIVE DIAGNOSIS: Hydropneumothorax, left chest. 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 INDICATIONS FOR OPERATION: Hydropneumothorax, pain, and shortness of breath. FINDINGS OF THE OPERATION: Cultures were sent of the pleural fluid, left hemithorax. 1. Frozen section, parietal pleura: Spindle cell tumor. 2. 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 3. Permanent sections were sent of lingular lobe biopsy and visceral pleura. 4. Pleural decortication, visceral. ESTIMATED BLOOD LOSS: Less than 100 mL. DESCRIPTION OF PROCEDURE: After informed consent, adequate preoperative medication and evaluation, the patient was brought to the operating room, placed on the table in the supine position. After induction of general endotracheal anesthesia and application of appropriate monitoring devices, flexible fiberoptic bronchoscopy and placement of a double lumen tube, the patient was turned in a right lateral decubitus position, left chest prepped and draped in a sterile field utilizing Betadine scrub, alcohol, and Betadine solution. Betadine-impregnated drape was also used. A posterolateral thoracotomy incision was made and dissection carried down to the fascia. Hemostasis was maintained with electrocautery. Fifth interspace was identified and opened. The chest was examined. The lower lobe and upper lobe were both trapped by pleural rind. The lung was dissected posterior to anterior over the aorta. Biopsy was taken of the aortic adventitia that returned spindle cell tumor. The adhesions from the upper lobe to the chest wall were lysed. Biopsy of the visceral pleura, superior lobe demonstrated spindle cell tumor as well. The lung then underwent mobilization and decortication of the lower and upper lobe sharply. The chest was irrigated. The pleura desiccated with a Mikulicz pad. The chest then underwent pleurodesis utilizing an aerosol talc. The chest tubes were placed, one anterior superiorly, one posteriorly and inferiorly. Chest was again examined. Instrument count and sponge count were correct times 2. The chest was closed in layers utilizing #2 Vicryl pericostal sutures, #1 Vicryl on the latissimus, 2-0 Vicryl on subcutaneous tissue, and skin approximated with skin rosenda. Sterile dressings were applied. The patient tolerated the procedure and was transferred to the [facility] in critical, but stable condition. OPERATIVE REPORT [id number] ROMI SARABIA TRANSINT:[id number] Voice Confirmation ID: [id number] DOCUMENT ID: [id number] BRENDON HOGUE MD at 1337 CC: [id number] DICTATION DATE: 03/19/17 1037 DOCTOR OF NURSE ANESTHESIA PRACTICE: 03/19/17 1112 ADM IN [facility] [address] [place] [address]
--- NOTE | 2017-03-21 18:05 | NUR ---
STATES SHE IS LEAVING FOR THE NIGHT AND WILL BE BACK AT NOON TOMORROW.
--- NOTE | 2017-03-21 19:00 | NUR ---
Received patient laying in bed with wrist restraints in use, assessment completed per flowsheet. Patient confused/disoriented to time/place/situation, pulling at lines/tubes. Eyes PERRLA @ 4mm with brisk response, sclera is slightly reddened. S1/S2 noted NSR on telemetry with HR 95, rythmic and regular. Breathing is shallow and unlabored on 2L via NC with O2 sat 95%, expiratory wheeze noted bilateral upper and mid with diminished sounds noted L upper and bilateral lower. Abdomen is soft and flat with bowel sounds active x4, non-tender. Criticore berman in use, slight priyank urine noted. Full ROM all extremities with all pulses palpable, cap refill < 3 sec with skin warm/dry to touch. Epidural in use, dressing CDI with wire intact. L subclavian CVL dressing CDI, Plasmalyte @ 30ml/hr infusing. Patient denies pain or other needs at this time, all VSS and will continue to monitor.
--- NOTE | 2017-03-21 19:30 | NUR ---
BLOOD PRESSURE TUBING INTERTWINED WITH EPIDURAL TUBING. PT ATTEMPTED TO GET OUT OF BED. EPIDURAL NOTED TO BE OUT APPROXIMATELY 2 CM. SITE CLEAN AND DRY. VSS. DR. HURLEY NOTIFIED AT 182. STATES TO "RETAPE EPIDURAL AND WATCH FOR SIGNS OF PAIN". SPOKE TO DR. HURLEY AT 183. STATES TO CALL VALDEZ SHER TO COME ASSESS EPIDURAL SITE. VALDEZ CALLED AT 183. STATES "WELL I DONT KNOW WHAT TO DO. IF ITS OUT ITS OUT". INFORMED OF CURRENT VITAL SIGNS AND INSERTION SITE ASSESSMENT. EPIDURAL SITE RETAPED AND LARGE TEGADERM APPLIED. NO MOISTURE NOTED. SPOKE WITH DR. HURLEY AT 185. CURRENT VITALS AND ASSESSMENT GIVEN. STATES TO CALL DR. RIVAS. DR. RIVAS CALLED AT 190. STATES TO MONITOR VITAL SIGNS AND PAIN ASSESSMENT FREQUENTLY AND TO SIT AT THE COMPUTER OUTSIDE OF PT ROOM. STATES IF PT APPEARS TO BE IN PAIN TO CALL ANESTHESIA TO REPLACE EPIDURAL. NIKIA BEAR NOTIFIED OF ABOVE EVENTS AND VERIFIES UNDERSTANDING.
--- NOTE | 2017-03-21 19:45 | NUR ---
PT NOTED TO BE ATTEMPTING TO "LASSO" WITH CHEST TUBES. REPOSITIONED AND INSTRUCTED NOT TO TOUCH CHEST TUBES.
--- NOTE | 2017-03-21 21:00 | NUR ---
Patient answers appropriately to orientation questions, but appears to be seeing hallucinations. Claims "water bugs" are on ceiling, asks to "call to pick him up since it is time to go". Reorientation unsuccessful, will monitorl closely. HS meds given without difficulty, Oral care provided. no further needs at this time.
--- NOTE | 2017-03-21 23:00 | NUR ---
Reassessment completed per flowsheet, patient resting in bed with eyes closed. Patient less agitated, claims to see hallucinations with reorientation unsuccessful. S1/S2 noted NSR on telemetry with HR 87, rhythmic and regular. Breathing is shallow and unlabored on 2L via NC with O2 sat 97%, slight expiratory wheeze noted bilateral upper with diminished L upper and bilateral lower. Full ROM all extremities with upper pulses palpable and lower pulses weak, skin warm/dry with cap refill < 3 sec. Epidural in use for pain, oral care provided. No further needs at this time, all VSS and will continue to monitor.
[2017-03-22] VITALS (25 sets, daily range): BP systolic 90–144; BP diastolic 7–86
--- NOTE | 2017-03-22 03:00 | NUR ---
Reassessment completed per flowsheet, patient restless in bed with eyes open. Patient answers appropriately, but states "seeing things". S1/S2 noted NSR on telemetry with HR 83, rhythmic and regular. Breathing is shallow on 2L via NC with O2 sat 95%, slight expiratory wheeze noted bilateral upper and mid with diminished L upper and bilateral lower. CT x2 L lateral chest to 20 cm H2O suction with serosanguinous drainage, dressing CDI. Epidural in use, back dressing CDI. Upper pulses palpable with weak lower pulses, cap refill < 3 sec with full ROM all extremities. Oral care provided, repositioned for comfort. No further needs at this time, all VSS and will continue to monitor.
--- NOTE | 2017-03-22 05:00 | NUR ---
Patient restless in bed with eyes open, breathing is shallow on 2L via NC with O2 sat 93%. Patient assisted onto bedpan, small formed brown stool collected. Oral care/repositioning provided, no further needs at this time, all VSS and will continue to monitor.
--- NOTE | 2017-03-22 06:00 | NUR ---
AM labs collected without difficulty, oral care provided. CT x2 dressing CDI with serosanguinous drainage, no swelling/bleeding noted. Patient denies pain or other needs at this time, all VSS and will continue to monitor.
[2017-03-22 06:19] LABS: HEMATOCRIT 31.2 % (42.0-54.0); MCH 29.4 pg (26.0-34.0); MCHC 32.1 g/dL (31.0-37.0); MCV 91.8 fL (80.0-100.0); MEAN PLATELET VOLUME 9.2 fL (7.4-10.4); RBC 3.4 10x6/uL (4.20-6.10); RDW 14.5 % (11.5-14.5); WBC 13.3 10x3/uL (4.8-10.8)
--- NOTE | 2017-03-22 06:20 | NUR ---
Patient pulled out Anterior Chest tube, dressing applied and stat Xray ordered. Dr Hogue notified, will address when he arrives.
[2017-03-22 06:38] LABS: ANION GAP 12.8 mmol/L (8-16); BILIRUBIN - TOTAL 0.7 mg/dL (0.2-1.3); CALCIUM 7.9 mg/dL (8.5-10.1); CARBON DIOXIDE 24.2 mmol/L (21.0-32.0); CREATININE - SERUM 1.1 mg/dL (0.6-1.3); MAGNESIUM - SERUM 1.9 mg/dL (1.8-2.4); PHOSPHOROUS 2.9 mg/dL (2.5-4.9); PROTEIN - SERUM 5.9 g/dL (6.4-8.2)
--- NOTE | 2017-03-22 07:15 | NUR ---
REPORT RECIEVED FROM VALVE TECHNICIAN NURSE. REPORTED PT'S BEHAVIOR AND CONFUSION. BILAT WRIST RESTRAINTS INTACT. PT ABLE TO GIVE ME HIS NAME AND BUT IS CONFUSED TO SITUATION AND STATES HE NEEDS TO GET UP OOB BED AND GO HOME. FULL ASSESSMENT COMPLETE PER FLOWSHEET. 1:1 CARE PROVIDED AT THIS TIME.
--- NOTE | 2017-03-22 07:30 | NUR ---
DR. RIVAS AT BEDSIDE. UPDATE PROVIDED.
--- NOTE | 2017-03-22 08:05 | NUR ---
ANESTHESIA AT BEDSIDE. EPIDURAL TAKEN OUT. NO ISSUES NOTED UPON REMOVAL.
--- NOTE | 2017-03-22 10:00 | NUR ---
DAUGHTER AT BEDSIDE. UPDATE PROVIDED.
--- NOTE | 2017-03-22 11:00 | NUR ---
DR. VENEGAS AT BEDSIDE. DAUGHTERS QUESTIONS ANSWERED PER DR. VENEGAS.
--- NOTE | 2017-03-22 11:10 | NUR ---
Nutrition Follow Up: Nursing in room with pt at the time of RD visit. Interview deferred. Pt is eating 69% meal avg on a regular diet. +BM 03/22/17. Wt loss noted. Meds and labs reviewed. Rec continue current diet. RD following.
--- NOTE | 2017-03-22 12:00 | NUR ---
AT BEDSIDE UPDATE PROVIDED.
--- NOTE | 2017-03-22 13:00 | NUR ---
F/C CLAMPED FOR U/A COLLECTION
--- NOTE | 2017-03-22 14:49 | NUR ---
BUPRINEX GIVEN PER ORDERS. PT RESTLESS. WILL REASSESS FOR CHANGES.
--- NOTE | 2017-03-22 16:30 | NUR ---
F/C REMOVED AND NEW 16F CRITICORE F/C PLACED USING STERILE TECHNIQUE. 400CC OF BLOODY URINE OUTPUT NOTED. WILL CONT TO ASSESS I&O'S.
[2017-03-22 17:07] LABS: APPEARANCE HAZY (CLEAR); BILIRUBIN NEGATIVE (NEGATIVE); COLOR BROWN (YELLOW); GLUCOSE NEGATIVE (NEGATIVE); KETONE NEGATIVE (NEGATIVE); NITRITE NEGATIVE (NEGATIVE); PROTEIN 1+ mg/dL (NEGATIVE); SPECIFIC GRAVITY 1.025 (1.005-1.020); UROBILINOGEN NORMAL (NORMAL)
[2017-03-22 17:08] LABS: RED CELLS - URINE >50 /hpf (0-5); WHITE CELLS - URINE 0-5 /hpf (0-5)
[2017-03-22 17:09] LABS: BACTERIA MODERATE /hpf (NONE SEEN)
--- NOTE | 2017-03-22 18:00 | NUR ---
LEFT TO GO HOME. STATED TO CALL HER IF PT BECOMES INCREASINGLY AGGITATED OR THERE ARE ANY SIGNIFICANT CAHNGES.
--- NOTE | 2017-03-22 19:00 | NUR ---
Patient resting in bed with eyes closed and restless, assessment completed per flowsheet. Patient disoriented to time/situation, calmer and following commands. Eyes PERRLA @ 4mm with brisk response, sclera is reddened. S1/S2 noted NSR on telemetry with HR 99, rhytmic and regular. Breathing is slightly shallow and unlabored on 3l via NC with O2 sat 94%, Expiratory wheeze noted RUL with diminished JOE/Mid/Bilateral lower. CT x1 to 20cm suction L lateral chest, dressing CDI with serosanguinous drainage. Abdomen is soft and flat with bowel sounds active x4, non-tender. Putnam secured in place with bloody urine noted in collection, groin area noted to have old blood and clot at insertion site from patient caused trauma. Full ROM all extremities with weakness noted, all pulses palpable with cap refill < 3 sec. L subclavian CVL dressing CDI, Plasmalyte A @ 30ml/hr infusing. Full bed bath linen change performed, oral care and repositioning provided. Patient denies pain or other needs at this time, all VSS and will continue to monitor.
--- NOTE | 2017-03-22 21:00 | NUR ---
Patient cleaned up from BM in bed, full bed bath/linen change performed. HS meds given without difficulty, patient finished cup of applesauce with assistance. Oral care/suctioning provided, repositioned for comfort. Denies pain or other needs at this time, all VSS and will continue to monitor.
--- NOTE | 2017-03-22 22:55 | NUR ---
Reassessment completed per flowsheet, patient resting in bed with eyes closed. Patient is calmer and follows instructions, moments of disorientation noted. S1/S2 noted NSR on telemetry with HR 89, rhythmic and regular. Breathing is slightly shallow on 3L via NC with O2 sat 94%, Expiratory wheeze noted RUL with JOE/Mid/Bilateral lower diminished. L lateral chest CT x1 dressing CDI with serosanguinous drainage to 20cm H20 suction. Upper pulses palpable with lower pulses weak, full ROM all extremities with cap refill < 3 sec. Patient repositioned for comfort, oral care and sips of water provided. Denies pain or other needs at this time, all VSS and will continue to monitor.
[2017-03-23] VITALS (35 sets, daily range): BP systolic 77–132; BP diastolic 38–79
--- NOTE | 2017-03-23 01:00 | NUR ---
Patient resting in bed with eyes closed, breathing is slightly shallow and unlabored on 3L via NC with O2 sat 94%. L lateral CTx1 dressing CDI with serosanguinous drainage, no drainage or swelling noted. Oral care/suctioning provided, patient repositioned for comfort. No further need at this time, all VSS and will continue to monitor.
--- NOTE | 2017-03-23 03:00 | NUR ---
Reassessment completed per flowsheet, patient resting in bed with eyes closed. Patient still has moments of disorientation, but follows commands and answers appropriately. S1/S2 noted NSR on telemetry with HR 86, rythmic and regular. Breathing is slightly shallow on 3L via NC with O2 sat 97%, expiratory wheeze noted RUL with diminished JOE/RML/Bilateral lower. L lateral CT x1 to 20 cm suction with serosanguinous drainage noted, dressing CDI with no bleeding drainage noted. Upper pulses palpable with lower pulses weak, cap erfill < 3 sec with skin warm/dry. Patient denies pain or other needs at this time, all VSS and will continue to monitor.
--- NOTE | 2017-03-23 05:00 | NUR ---
Patient resting in bed with eyes closed, breathing is shallow and unlabored on 3L via NC with O2 sat 95%. CT x1 L lateral chest to 20cm suction with dressing CDI, scant serosanguinous drainage noted. Oral care/suctioning provided, patient repositioned for comfort. No further needs at this time, all VSS and will continue to monitor.
[2017-03-23 06:32] LABS: BASOPHILS 0.2 % (0-2); EOSINOPHILS 0.1 % (0-7); HEMATOCRIT 35.7 % (42.0-54.0); HEMOGLOBIN 10.8 g/dL (13.5-17.5); IMMATURE GRANULOCYTES 0.7 % (0-5); LYMPHOCYTES 3.5 % (15-50); MCH 28.9 pg (26.0-34.0); MCHC 30.3 g/dL (31.0-37.0); MONOCYTES 10.4 % (2-11); NEUTROPHILS 85.1 % (40-80); PLATELET COUNT 405 10x3/uL (130-400); RBC 3.74 10x6/uL (4.20-6.10); RDW 14.6 % (11.5-14.5); WBC 13.2 10x3/uL (4.8-10.8)
[2017-03-23 06:36] LABS: MCV 95.5 fL (80.0-100.0)
[2017-03-23 06:44] LABS: CALCIUM 8.6 mg/dL (8.5-10.1); CREATININE - SERUM 1.3 mg/dL (0.6-1.3); MAGNESIUM - SERUM 2.3 mg/dL (1.8-2.4)
[2017-03-23 06:47] LABS: ANION GAP 10.9 mmol/L (8-16); CARBON DIOXIDE 30.5 mmol/L (21.0-32.0); POTASSIUM - SERUM 5.4 mmol/L (3.5-5.1)
--- NOTE | 2017-03-23 07:30 | NUR ---
Report received. Assessment complete. Pt sleeping/lethargic. Sinus rhythm. Plasmalyte infusing through left subclavian central line at 30ml/hr. Dressing intact. Dated 03/19. On 4L NC. Diminished breath sounds. Snoring. Chest tube at left lateral chest on suction. Air leak noted. Dressing intact. Douglas hose in use. Pulses palpable. Air overlay mattress. Bilateral wrist restraints. [place] urine noted in berman catheter. No visible clots. Statlock in use.
--- NOTE | 2017-03-23 08:26 | NUR ---
at bedside. Update provided. Pt currently sleeping. Snoring. Pt appears to have gone into afib. Review of monitoring shows around 0810. Dr Hogue nurse at bedside and monitoring reviewed.
--- NOTE | 2017-03-23 08:54 | NUR ---
Putnam catheter flushed with 30ml saline. No clots noted. clear output. Have attempted to wake patient to give oral morning medications. Cannot get patient to wake. at bedside and has attempted to wake patient with no luck. To notify Dr Hogue unable to get patient to take oral medications.
--- NOTE | 2017-03-23 11:08 | NUR ---
Pt repositioned to left side. Opens eyes
--- NOTE | 2017-03-23 11:40 | NUR ---
Pt still sleeping. Snoring. Appears to be using abdomenal muscles for breathing. Temperature also has increased some. To order blood gas.
--- NOTE | 2017-03-23 11:49 | NUR ---
at bedside. Update given. Respiratory dept called for ABG.
--- NOTE | 2017-03-23 11:53 | NUR ---
RT at bedside to obtain ABG
--- NOTE | 2017-03-23 13:01 | NUR ---
Pt intubated at 1225. No difficulty. Xray obtained. Family now at bedside. Dr Hogue has been in. Spoke with family.
--- NOTE | 2017-03-23 13:30 | NUR ---
Pt family at bedside. He has opened his eyes a couple of times. Nods head in response to questioning if he was cold.
--- NOTE | 2017-03-23 15:34 | NUR ---
Pt self extubated. Reintubated at 1500. 8.5ett 23 at the teeth. OGT dropped. Xray obtained. Family at bedside. Zarina called to ask about sedation orders. Awaiting return call.
--- NOTE | 2017-03-23 15:44 | NUR ---
Pt has calmed some. Follows commands. Continues to try to chew on ETT. Tubes concealed. Family holding pt hands. HR consistent uper 130's - 140's and regular rhythm with occassional pvc. Current bp 104/59 resp 17 o2 97% hr 142.
--- NOTE | 2017-03-23 16:00 | NUR ---
current vent settings a/c 600 45% peep 5 rr 14
--- NOTE | 2017-03-23 16:20 | NUR ---
Dr Hogue by to see patient. Family spoken to. Questions answered. Concerns addressed.
--- NOTE | 2017-03-23 16:24 | NUR ---
Sedation initiated. To wean off tomorrow.
--- NOTE | 2017-03-23 16:43 | NUR ---
INFUSION OF AMIODARONE DRIP STARTED. PROGRAMMED TO INFUSE 1MG/HR FOR 6HR. (10ML/HR (60ML)) AND THEN WILL NEED REPROGRAMMED TO INFUSE 0.5MG/HR
--- NOTE | 2017-03-23 17:23 | NUR ---
Pt bathed with clorhexadine wipes. Putnam care provided. All new linens and gown placed.
--- NOTE | 2017-03-23 18:12 | NUR ---
PT ZAMORA TEMP READING 39.2 ORAL READING OF 101.0. HAVE REMOVED COVERINGS AND PLACED COOL CLOTH ON FOREHEAD. NO DROP IN READING. WILL GIVE PRN TYLENOL.
--- NOTE | 2017-03-23 19:35 | NUR ---
REPORT REC'D AND CARE ASSUMED, REC'D PT ON VENT VIA 8.5 ETT TAPED AT 23CM SEE FLOWSHEET FOR VENT SETTINGS, PT PULLING AT RESTRAINTS, OPENS EYES SPONTANEOUSLY OCCASIONALLY, DOES NOT FOLLOW COMMANDS, LDLSCL DRSG CDI WITH PLASMALYTE @ 30CC/HR, DIPRIVAN @ 15CC/HR, AND CORDARONE @ 10CC/HR OR 1MG/MIN, LEFT LATERAL POSTERIOR CHEST INCISION DRSG CDI, LEFT LATERAL CT TO 20CM H2O SUCTION, SM AIR LEAK NOTED, SEROUS DRAINAGE NOTED, CRIICORE ZAMORA PATENT DRAINING BLOOD TINGED URINE, BILAT SOFT WRIST RESTRAINTS INTACT, BILAT TEDS ON, PPP, SR UP X 2, NURSE AT BS.
--- NOTE | 2017-03-23 20:30 | NUR ---
PT REPOSITIONED FOR COMFORT, PT'S BP LABILE WITH TITRATION OF DIPRIVAN, NODS YES WHEN ASKED IF HOT, SHEET REMOVED AND COOL CLOTH PLACED TO FOREHEAD.
--- NOTE | 2017-03-23 21:15 | NUR ---
EVENING MEDS GIVEN, PT REMAINS IN UCAF RATE 126, BP 92/58, LOPRESSOR GIVEN VIA OGT AND CLAMPED, NO VISITORS IN AT THIS TIME.
--- NOTE | 2017-03-23 23:00 | NUR ---
PT PULLING AT RESTRAINTS AND GOWN, TAPPING RIGHT HAND AGAINST SIDE RAIL, PILLOWS ADJUSTED TO PREVENT PT FROM HURTING HAND, ATTEMPTED TO ORIENT AND CALM AT THIS TIME, TITRATING DIPRIVAN, BP LABILE WITH TITRATION.
[2017-03-24] VITALS (39 sets, daily range): BP systolic 89–142; BP diastolic 50–89
--- NOTE | 2017-03-24 00:15 | NUR ---
PT INCONTINENT OF SMALL SOFT BROWN STOOL, PARTIAL BATH AND LINEN CHANGE PROVIDED, PERICARE PROVIDED, PT REPOSITIONED UP IN BED AND ONTO RIGHT SIDE SUPPORTED WITH PILLOWS, PT EASILY AGITATED INCREASING DIPRIVAN TOLERATED.
--- NOTE | 2017-03-24 01:30 | NUR ---
PT RESTLESS IN BED, PULLING AT RESTRAINTS AND KICKING LEGS, ATTEMPTED TO CALM REPOSITIONED FOR COMFORT, AND ORAL CARE PROVIDED
--- NOTE | 2017-03-24 03:30 | NUR ---
RADIOLOGY AT BS FOR AM CXR, PT RESTING EYES CLOSED, RESP RATE 18-20, BP STABLE
--- NOTE | 2017-03-24 03:50 | NUR ---
LEFT DLSCL DRSG CHANGED PER PROTOCOL, SITE CLEANED WITH CHLORAPREP, BIOPATCH APPLIED AND COVERED WITH TEGADERM
--- NOTE | 2017-03-24 04:00 | NUR ---
TEMP INCREASED TO 38.5 BY CRITICORE, TYLENOL 1000MG GIVEN, PT REPOSITIONED IN BED FOR COMFORT.
--- NOTE | 2017-03-24 05:00 | NUR ---
WEANING DIPRIVAN TOLERATED
--- NOTE | 2017-03-24 06:30 | NUR ---
DIPRIVAN WEANED TO 5CC OR 9 MCG/KG/MIN, PT RESTLESS IN BED, KICKING LEGS AND PULLING AT RESTRAINTS, CONTINUING TO ATTEMPT TO CALM PT, PT NODS YES AND NO APPROPRIATELY.
[2017-03-24 06:33] LABS: BASOPHILS 0 % (0-2); EOSINOPHILS 0 % (0-7); HEMOGLOBIN 10.1 g/dL (13.5-17.5); IMMATURE GRANULOCYTES 0.3 % (0-5); LYMPHOCYTES 8.9 % (15-50); MCH 28.9 pg (26.0-34.0); MCHC 31.6 g/dL (31.0-37.0); MEAN PLATELET VOLUME 8.7 fL (7.4-10.4); MONOCYTES 15.6 % (2-11); NEUTROPHILS 75.2 % (40-80); PLATELET COUNT 350 10x3/uL (130-400); RDW 14.5 % (11.5-14.5); WBC 10.7 10x3/uL (4.8-10.8)
[2017-03-24 06:43] LABS: ANION GAP 14.3 mmol/L (8-16); CALCIUM 8.9 mg/dL (8.5-10.1); CREATININE - SERUM 1.4 mg/dL (0.6-1.3); MAGNESIUM - SERUM 2.4 mg/dL (1.8-2.4)
[2017-03-24 06:44] LABS: POTASSIUM - SERUM 4.3 mmol/L (3.5-5.1)
[2017-03-24 06:46] LABS: MCV 91.4 fL (80.0-100.0)
--- NOTE | 2017-03-24 07:00 | NUR ---
Report received. Assumed care of patient. Turned Diprivan off as was ordered to stop at 0600. Pt alert. Follows commands. Attempts to pull at lines. Jeramy settings A/C 14, 600, 40%, Peep 5
--- NOTE | 2017-03-24 08:08 | NUR ---
Pt has had 3 bowel movements since coming on shift. Follows commands, rolls with ease. Still attempts to pull at lines. Oral care has been provided. Pt has been repositioned for comfort. Attempted to calm patient by rubbing lotion on feet and trying to relax him. Lines concealed and hands repositioned away from body. Respiratory rate currently 7-20. Sats 97%.
--- NOTE | 2017-03-24 08:45 | NUR ---
Trialing spontaneous breathing. Pt tolerating at this point.
--- NOTE | 2017-03-24 09:28 | NUR ---
Pt cleaned up from bowel movement.
--- NOTE | 2017-03-24 09:30 | NUR ---
Dr Sarkar called. Updated to patient prgoress. Agrees with weaning. Asks that RT follow protocol and wean extubate if appropriate. Ammonia level reviewed.
--- NOTE | 2017-03-24 10:01 | NUR ---
Pt tapping at side rails. Denies being cold or needing blanket. Asked if he wanted the channels changed on the TV, he did. Found a show he wanted to stop on. Keeps raising legs and stretching. Asked him if he needed repositioned, shook head back and forth. Asked if he was restless, nodded yes. Pt had berman line in hand. Told him not to pull on it that it was in his penis. Nodded ok and then he let go. Tapped his hand again at side rail and indicated he wanted to hold my hand. Gave him my hand and held until he let go.
--- NOTE | 2017-03-24 10:21 | NUR ---
Oral care provided. Suctioning.
--- NOTE | 2017-03-24 10:43 | NUR ---
Respiratory therapist at bedside. ABG sample drawn.
--- NOTE | 2017-03-24 11:03 | NUR ---
Explained to patient to take slow deep breaths. Not to breathe fast. Explained once tube comes out he will still have the chest tube to watch for and his berman, but that we can remove restraints as long as he doesn't pull on them. He nodded his head to indicate he understands. Now awaiting respiratory therapist to removed ETT.
--- NOTE | 2017-03-24 11:19 | NUR ---
Pt extubated. Reminded not to pull at chest tube or berman. Instructed on use of suction. Currently on 3L NC, stats 97%. Pt performing self suction. HOB at 43 degrees and watching television. Restraints have been removed.
--- NOTE | 2017-03-24 11:25 | NUR ---
Called Velma and let her know that patient has been extubated.
--- NOTE | 2017-03-24 11:35 | NUR ---
called Zarina BEAR to notify of extubation time. Says is still to remain 1:1 at this time
--- NOTE | 2017-03-24 12:03 | NUR ---
Good cough effort. Pt continues to use suction when needed. Pulled up in bed and repositioned for comfort.
--- NOTE | 2017-03-24 12:16 | NUR ---
Pt given ice chips. Tolerating well.
--- NOTE | 2017-03-24 13:02 | NUR ---
still at bedside. Pt calm and cooperative. Eating ice chips. C/O pain at left chest. Explained surgery and chest tubes. Pt has good cough effort and continues to use suction
--- NOTE | 2017-03-24 13:53 | NUR ---
Pt c/o pain in ribs. Only has order for Tylenol PRN Fever. Zarina BEAR paged. OK to give Tylenol for pain
--- NOTE | 2017-03-24 14:18 | NUR ---
Pt was provided water with Tylenol administration. Tolerating thin liquids.
--- NOTE | 2017-03-24 15:18 | NUR ---
Pt cleaned up from another bowel movement. Soft brown. Full linen change provided. Family now at bedside. Dr Sarkar just in, and spoke with and patient
--- NOTE | 2017-03-24 15:49 | NUR ---
Chest tube resevoir full. New one placed. Small air leak still noted.
--- NOTE | 2017-03-24 15:53 | NUR ---
CASE MANAGEMENT NEEDS: says used [facility] in the past, was not very pleased with their service. If needs home health at discharge, would like to see what other options are available.
--- NOTE | 2017-03-24 16:23 | NUR ---
Pt resting with eyes closed. Low moaning. Still has pain in ribs. in waiting area awaiting to speak to Dr Hogue.
--- NOTE | 2017-03-24 16:40 | NUR ---
Pt c/o being cold. Warm blanket provided.
--- NOTE | 2017-03-24 17:41 | NUR ---
at bedside. Update provided to her by Dr Hogue. No pathology report as of yet.
--- NOTE | 2017-03-24 17:53 | NUR ---
Dr Griffin called to see if would be seeing patient. Did come by yesterday to see patient. Will come tomorrow to see patient.
--- NOTE | 2017-03-24 18:03 | NUR ---
Dr Griffin by to see patient. Spoke with Pt and . Will start [facility] inpatient and providing written [facility]. Will see in office for F/U in 4 weeks once patient discharges
--- NOTE | 2017-03-24 18:09 | NUR ---
leaving. Says will return around 12:30 tomorrow. Please call with any changed in patient condition.
--- NOTE | 2017-03-24 19:00 | NUR ---
REPORT RECEIVED AND ASSESSMENT COMPLETED. SEE FLOWSHEET FOR FULL DETAILS. PT IS POST OP VAT BY DR RIVAS.CURRENTLY ON 3L NC WITH A SAT OF 98. PT HAS POSTERIOR CHEST TUBE IN PLACE IN LEFT LAT CHEST. PT PULLED ANTERIOR CHEST TUBE OUT AND HAS RECENTLY SELF EXTUBATED. CURRENTLY ON 1 ON 1 STATUS, THOUGH APPEARS ALERT AND ORIENTED. EDUCATED PT ON IMPORTANCE OF LINES AND TUBES, AND PT IS AGREEABLE THAT HE NEEDS THEM AT THIS TIME. WILL MONITOR CLOESLY THROUGHOUT SHIFT. LEFT UPPER LOBE HAS CRACKLES PRESENT, AND RONCHI HEARD IN RIGHT UPPER AND MIDDLE LOBES. DIMMINISHED IN LOWER LOBES BILAT. PT IS ON AMIODARONE DRIP AT THIS TIME. CURRENTLY IN UNCONTROLLED AFIB AT 120. IS AWARE OF FIB ISSUES.
--- NOTE | 2017-03-24 21:00 | NUR ---
2100 MEDS GIVEN. PT EXPERIENCEING SOME DISCOMFORT. TREATING WITH PRN MEDS, FREQUENT REPOSITIONING, AND HEAT. WILL CONTINUE TO MONITOR. VSS AT THIS TIME.
--- NOTE | 2017-03-24 23:00 | NUR ---
REASSESSMENT COMPLETED. SEE FLOWSHEET FOR FULL DETAILS. PT HAD ONE BM. COMPLETE LINEN CHANGE PERFORMED. PRN MEDICATION GIVEN FOR DISCOMFORT. PT BEING REPOSITIONED FREQUENTLY WHICH HE STATES PROVIDES HIM COMFORT. HEAT BEIND APPLIED TO RIBS WELL. WILL CONTINUE TO MONITOR
[2017-03-25] VITALS (24 sets, daily range): BP systolic 95–131; BP diastolic 51–89
--- NOTE | 2017-03-25 01:00 | NUR ---
PT SEEN ATTEMPTING TO PULL AT ZAMORA CATHETER. RE-EDUCATED PT ON IMPORTANCE OF ZAMORA. ZAMORA STILL IN PLACE AT THIS TIME.
--- NOTE | 2017-03-25 03:00 | NUR ---
REASSESSMENT COMPLETED. SEE FLOWSHEET FOR FULL DETAILS. PT HAD ANOTHER BM. FULL LINEN CHANGE COMPLETED AT THIS TIME. WILL MONITOR
--- NOTE | 2017-03-25 05:00 | NUR ---
PRN TORADOL GIVEN FOR PAIN. WILL REASSESS. PT HAD 3RD BM. COMPLETE LINEN CHANGE PERFORMED AT THIS TIME. PT REPOSITIONED FOR COMFORT. WILL MONITOR THROUGHOUT REMAINDER OF SHIFT FOR CHANGES.
[2017-03-25 06:00] LABS: BASOPHILS 0.1 % (0-2); EOSINOPHILS 0.2 % (0-7); HEMATOCRIT 30.9 % (42.0-54.0); IMMATURE GRANULOCYTES 0.3 % (0-5); MCHC 32.4 g/dL (31.0-37.0); MCV 89.6 fL (80.0-100.0); MEAN PLATELET VOLUME 8.6 fL (7.4-10.4); NEUTROPHILS 80.4 % (40-80); PLATELET COUNT 366 10x3/uL (130-400); RBC 3.45 10x6/uL (4.20-6.10); RDW 14.2 % (11.5-14.5); WBC 11.7 10x3/uL (4.8-10.8)
[2017-03-25 06:13] LABS: ANION GAP 12.6 mmol/L (8-16); CALCIUM 8.2 mg/dL (8.5-10.1); CREATININE - SERUM 1.3 mg/dL (0.6-1.3); MAGNESIUM - SERUM 2.2 mg/dL (1.8-2.4)
[2017-03-25 06:22] LABS: POTASSIUM - SERUM 3.6 mmol/L (3.5-5.1)
--- NOTE | 2017-03-25 07:00 | NUR ---
Report received. Pt alert and conversant. Extremely hard of hearing and not wearing his hearing aids. Dressing to left chest at chest tube site is saturated and leaking. Hypafix tape placed along length of pt side remains undisturbed. Upper tegaderm dressing removed and gauze. Chest tube remains in patient, but shows some give of position. Appears possible dislogement of stitch. Fiberous drainage plug noted in tube. While securing tube placement, nurse attempted to squeeze tube to dislodge plug. Incision site swabbed with iodine swabs and gauze and tegaderm dressing applied. Placed another swatch of hypafix tape as precautionary measure to help keep tube secure. Linens changed and patient repositioned for comfort. After repositioning, large amount of drainage noted in chest tube. Pt has requested to have FRANKI hose off and does not want reapplied at this time. Urine output dark yellow and clear. On 3L NC. Sats 99%. Remains in uncontrolled A-fib. Continues to receive Amiodarone drip at 0.5mg/min and Plasmalyte at 50ml/hr to left subclavian double lumen. CVL dressing intact and dated 03/24/17. Swab caps in use.
--- NOTE | 2017-03-25 08:10 | NUR ---
Pt sat up and attempted to get out of bed. Asked to lay back down. Waiting for physical therapy to come evaluate before getting up.
--- NOTE | 2017-03-25 08:31 | NUR ---
Pt continues to moan out in pain. No relief with Tylenol. Pt had dose of Toradol at 0430 with little relief gained according to patient.
--- NOTE | 2017-03-25 08:46 | NUR ---
Pt now sleeping. No moaning. Snores. Mouth breathing. RR 27, o2 sats 96%.
--- NOTE | 2017-03-25 08:52 | NUR ---
Dr Hogue came by to check on PT. Informed of chest tube output. Wants patient up with physical therapy today. Asked patient how he was doing, patient gave "thumbs up signal" Pt now back to maxim.
--- NOTE | 2017-03-25 08:58 | NUR ---
Pt sat up in bed and attempted to get out of bed. Told him we are waiting on physical therapy and will get up then. Laid back down.
--- NOTE | 2017-03-25 09:04 | NUR ---
Pt resting quietly at this time. Right side lying position with head propped against side rail. No moaning at this time. Light snoring. HR 90's.
--- NOTE | 2017-03-25 10:05 | NUR ---
Consult for Dr Kirkpatrick placed by Dr Hogue. Dr Hogue called and spoke with Dr Kirkpatrick himself. Pt has been evaluated by physical therapy. Pt was assisted upright out of bed. Pt is currently in the chair at bedside and has eaten a few bites of his breakfast tray. No moaning at this time. Chest tube and berman remain in place.
--- NOTE | 2017-03-25 10:19 | NUR ---
Called and updated to patient's progress. Will be here around 12:30 today.
--- NOTE | 2017-03-25 10:29 | NUR ---
Nutrition Follow Up: Chart reviewed. Pt extubated 03/24/17. Per chart pt with some intake at breakfast meal. Pt is on a regular diet. +BM 03/25/17. Wt loss noted. Meds and labs reviewed. Rec continue current diet as tolerated. Will honor food preferences. RD following.
--- NOTE | 2017-03-25 11:30 | NUR ---
Pt given Toradol inj for pain. Rates level 8/10. Has asked to go back to bed. Encouraged to stay up in chair at bedside.
--- NOTE | 2017-03-25 12:12 | NUR ---
Pt provided warm blanket. Has c/o room being cold. Thermostat adjustment request has been submitted to engineering. Has eaten about 10% of lunch. Tolerating oral intake well.
--- NOTE | 2017-03-25 13:46 | NUR ---
at bedside. Has been here for about an hour. Update provided. Pt remains in chair at bedside.
--- NOTE | 2017-03-25 14:25 | NUR ---
Pt provided bedside commode. Large bowel movement. Pt transfered with assistance due to multiple lines.
--- NOTE | 2017-03-25 14:50 | NUR ---
Pt assisted back to bed from physical therapist. Pt currently sleeping/snoring.
--- NOTE | 2017-03-25 15:07 | NUR ---
Pt has periods of apnea while sleeping.
--- NOTE | 2017-03-25 16:05 | NUR ---
at bedside. Pt was sleeping upon arrival, is now awake. Repositioned for comfort and pain relief.
--- NOTE | 2017-03-25 16:22 | NUR ---
Dr Sarkar in to see patient. Conversed with patient and .
--- NOTE | 2017-03-25 16:52 | NUR ---
Dr Hogue has been in to see patient. and daughter at bedside. No pathology report yet.
--- NOTE | 2017-03-25 17:25 | NUR ---
New order received for Lovenox 40mg. Pt had dose of 40mg this morning. Confirmed with Dr Hogue desire for additional dosing. Wanted the new dose given now and time of administration has been changed from 0900 to 1200 for future doses.
--- NOTE | 2017-03-25 18:20 | NUR ---
Pt resting, watching evening news. Has been cat-napping. Chest tube reinforced with hypafix tape as precautionary. Pt has been turning from side to side to get comfortable and worried it will get dislodged. All lines secured at this time.
--- NOTE | 2017-03-25 18:29 | NUR ---
Pt starting to show signs of confusion. Went to other side of bed to reposition him and he said "I just can't keep up with them." I asked what he was talking about and he said "my hearing aids." I told him they were on his table, and he said "I know, but I've got another pair I lost in the bed." Told him they were probably at home and he insisted they were here. He then asked me where he was supposed to sleep tonight.
--- NOTE | 2017-03-25 18:44 | NUR ---
Pt sleeping/snoring. Sats 91% on room air. Placed back on 2L NC while sleeping. sats now 96%. Does well on room air while awake, but due to apnic episodes and snoring unable to maintain proper saturation.
--- NOTE | 2017-03-25 19:20 | NUR ---
SHIFT ASSESSMENT COMPLETED. SEE ASSESSMENT FLOWSHEET. ORIENTED EXCEPT TO THE YEAR. REORIENTED TO YEAR. TURNS SELF IN BED. MOANING NOTED INTERMITTENTLY TO PAIN. O2 @ 2LPM/NC. ON AIR OVERLAY MATTRESS. LEFT SC CVL INTACT WITH PLASMALYTE @ 50ML/HR AND CORDARONE @ 0.5MG/MIN. WILL MONITOR. 1:1 NURSING IN PROGRESS.
--- NOTE | 2017-03-25 20:00 | NUR ---
DR. TANNER AT BEDSIDE ASSESSING. WILL GIVE SUBCOSTAL BLOCK T6-T8 WITH CELESTONE AND BUPIVACAINE.
--- NOTE | 2017-03-25 20:15 | NUR ---
DR. ALMAZAN AT BEDSIDE. CALLED. TOLD PATIENT CALLED AND SHE WAS GOING TO BED. VERBALIZED UNDERSTANDING. 2024: DR. TANNER IN TO ASSESS PAIN RELIEF. PT REPORTS AN 8/10 BUT ISNT TENDER TO TOUCH OR PALPATION PREVIOUSLY ASSESSED.
--- NOTE | 2017-03-25 20:45 | NUR ---
PULLED UP IN BED FOR COMFORT. CAN TURN SELF. WILL MONITOR.
--- NOTE | 2017-03-25 21:25 | NUR ---
PULLED UP IN BED AGAIN PER HIS REQUEST. TURNED SELF TO RT SIDE.
--- NOTE | 2017-03-25 22:30 | NUR ---
DRINKS SIPS OF WATER WITHOUT DIFFICULTY INDEPENDENTLY. WILL MONITOR.
--- NOTE | 2017-03-25 23:45 | NUR ---
TV TURNED OFF TO HELP SLEEP. IV TORADOL GIVEN FOR PAIN MANAGEMENT. WILL MONITOR. 1:1 NURSING CARE IN PROGRESS.
--- NOTE | 2017-03-25 23:54 | NUR ---
PATIENT USING KLEENEX TO STICK IN HIS NOSE. UPON ASSESSING, HAS A SMALL NOSE BLEED. APPLIED HUMIDIFICATION TO O2. WILL MONITOR.
[2017-03-26] VITALS (26 sets, daily range): BP systolic 96–137; BP diastolic 61–81
--- NOTE | 2017-03-26 00:35 | NUR ---
TRYING TO PULL SELF UP IN BED. UNABLE TO DO MUCH ALONE. ASSISTED X2 NURSES TO GET UP IN BED AND REPOSITIONED SELF TO COMFORT. I & O'S ASSESSED. NO MORE BLEEDING NOTED TO NARES. WILL MONITOR. 1:1 NURSING CARE IN PROGRESS.
--- NOTE | 2017-03-26 02:08 | NUR ---
ASKING IF TYLENOL WOULD HELP HIM REST. TYLENOL GIVEN FOR PAIN 5/10 ON NUMBER SCALE. REPOSITIONED SELF IN BED. AFIB ON THE MONITOR IN THE 80'S NOTED. WILL MONITOR. 1:1 NURSING CARE IN PROGRESS.
--- NOTE | 2017-03-26 02:39 | NUR ---
PULLED UP IN BED PER REQUEST. I.S. COMPLETED UP TO 1,000ML X 10 TIMES. GAVE APPLE JUICE ONCE ASKED IF HE WANTED TO SOME JUICE. DRANK A SIP AND PLACED CUP ON BEDSIDE TABLE. WILL MONITOR.
--- NOTE | 2017-03-26 03:35 | NUR ---
REQUESTING TO USE THE COMMODE. STATES "I DON'T WANT TO USE THE BATHROOM IN THE BED". UP TO BEDSIDE COMMODE WITH ASSIST X1 WITH HELP INTIATING STANDING. SEMI-SOLID, PASTY LIGHT BRWN BM CLEANSED FROM PERINEAL AREA. LINENS CHANGED ON BED. BACK TO BED WITH MINIMAL ASSIST AND PULLED UP IN BED. ALL MONITORING EQUIPMENT RECONNECTED. PATIENT AND OTHER NURSING STAFF MEMBER, CYNTHIA, CONVERSING ABOUT THE [place] THEY WENT TO TOGETHER. REMEMBERING SPECIFICS THAT ARE 12-15 YEARS AGO PER [facility] AND PATIENT IS ON POINT WITH DETAILS. TOLERATED MOVEMENT WITH. NOT SOB AT PRESENT. WILL MONITOR. 1:1 NURSING CARE IN PROGRESS.
--- NOTE | 2017-03-26 03:45 | NUR ---
ZAMORA CATHETER CARE COMPLETED. NO BLOOD IN URINE NOTED. WILL MONITOR.
--- NOTE | 2017-03-26 04:35 | NUR ---
PORTABLE CHEST XRAY COMPLETED. TOLERATED WELL. NEW CUP OF WATER GIVEN PER REQUEST. WILL MONITOR.
--- NOTE | 2017-03-26 05:20 | NUR ---
REPOSITIONING SELF IN BED, MOANING. DOES REPORT WHEN ASKED NEEDING SOMETHING FOR PAIN. INFORMED OF NEXT PAIN MEDS IN ABOUT 15-30 MINUTES. VERBALIZED UNDERSTANDING.
--- NOTE | 2017-03-26 05:53 | NUR ---
IV TORADOL GIVEN PRN FOR PAIN. DECREASED O2 TO 1LPM/NC HUMIDIFIED DUE TO O2 SATS MAINTAINING 99%. MOANING AND REPORTING "OH BABY, I HURT, OH I HURT". INFORMED TO GIVE THE PAIN MEDS A LITTLE TIME AND NERVE BLOCK MAY BE STARTING TO WEAR OFF. WILL MONITOR. 1:1 NURSING CARE IN PROGRESS.
[2017-03-26 06:14] LABS: BASOPHILS 0 % (0-2); EOSINOPHILS 0.1 % (0-7); HEMATOCRIT 29.5 % (42.0-54.0); HEMOGLOBIN 9.6 g/dL (13.5-17.5); IMMATURE GRANULOCYTES 0.3 % (0-5); LYMPHOCYTES 2.3 % (15-50); MCH 29.2 pg (26.0-34.0); MCHC 32.5 g/dL (31.0-37.0); MCV 89.7 fL (80.0-100.0); MEAN PLATELET VOLUME 8.9 fL (7.4-10.4); MONOCYTES 4.8 % (2-11); NEUTROPHILS 92.5 % (40-80); PLATELET COUNT 382 10x3/uL (130-400); RBC 3.29 10x6/uL (4.20-6.10); RDW 14.2 % (11.5-14.5); WBC 13.2 10x3/uL (4.8-10.8)
[2017-03-26 06:20] LABS: ANION GAP 12.8 mmol/L (8-16); CALCIUM 8.4 mg/dL (8.5-10.1); CARBON DIOXIDE 26.5 mmol/L (21.0-32.0); CREATININE - SERUM 1.2 mg/dL (0.6-1.3); MAGNESIUM - SERUM 2.5 mg/dL (1.8-2.4)
[2017-03-26 06:26] LABS: POTASSIUM - SERUM 4.3 mmol/L (3.5-5.1)
--- NOTE | 2017-03-26 06:27 | NUR ---
PULLED UP IN BED, MOANING. REPORTS PAIN IS BACK. REPOSITIONED FOR COMFORT. ASKED "LET ME ASK YOU SOMETHING, WHAT THE HELL IS THIS THING ON MY EAR THAT IS HURTING ME"? SWITCHED PULSE OX PROB FROM EAR TO FINGER AND INFORMED WHAT IT WAS. REPORTS MORE COMFORT AND PAIN RELIEF SINCE MOVING UP IN BED. WILL MONITOR.
--- NOTE | 2017-03-26 06:45 | NUR ---
DR. RIVAS MADE AWARE OF PAIN. NO NEW ORDERS AT THIS TIME. PT SHIFTING WEIGHT IN BED TO GET MORE COMFORTABLE. WILL MONITOR.
--- NOTE | 2017-03-26 07:55 | NUR ---
0715-RECIEVED PER FLOW SHEET-PT ASLEEP ON R SIDE-NOTED LOW AIR LEAK IN L LATERAL CHEST TUBE-NO DRAINAGE AT THIS TIME IN TUBING DRG INTACT AND NO DRAINAGE-L CVL IN PLACE-CORDARONE AT 0.5-AND PLASMALYTE-50ML/H A FIB ON MONITOR 0745-ASSISTED TO BEDSIDE COMMODE-PT REQUESTING ASSISTANCE-ABLE TO FOLLOW DIRECTION 0800- AT [facility]
--- NOTE | 2017-03-26 08:24 | NUR ---
AT BEDSDIE-PT CONVERSING APPROPRIATELY-TYLENOL EXS-2 TABS GIVEN FOR PAIN LEVEL OF 5 AND POSITIONING WITH PILLOWS
--- NOTE | 2017-03-26 09:23 | NUR ---
AMBULATED TO NURSES DESK-ON ROOM AIR-SOB NOTED AND RETURNED TO RM-CT PLACED TO SUCTION FOR MODERATE AIR LEAK--SCANT SEROUS FLUID-RETURNED TO CHAIR-O2 SAT 95%-AIRLEAK LOW-CHEST TUBE CONNECTION SITE RESECURED
--- NOTE | 2017-03-26 09:41 | NUR ---
EXPRESSES TO -NO RECALL TO PREVIOUS AND POST OR EXPERIENCE-EXPRESSES DOES NOT KNOW WHERE HE LIVES- REVIEWING WITH PT -CURRENT AND PAST EVENT-HOME LOCATION-FRIEND GROUP
--- NOTE | 2017-03-26 09:58 | NUR ---
LEFT BEDSIDE --REMAINS 1;1-UP IN CHAIR-IS DONE FREQUENTLY--1000ML PRODUCTIVE COUGH-KBRN
--- NOTE | 2017-03-26 13:39 | NUR ---
PT ASSISTED BACK TO BED X2 NURSES. TOLERATED WELL. REPOSITIONED IN BED FOR COMFORT. CALL LIGHT WITHIN REACH. VSS. PT'S AT BEDSIDE. BED ALARM ON.
--- NOTE | 2017-03-26 17:58 | NUR ---
DR. RIVAS NOTIFIED OF NO URINE OUT VIA ZAMORA. DR. BAZAN ALSO NOTIFIED, AND ORDERED TO CHANGE OUT ZAMORA.
[2017-03-26 19:16] LABS: APPEARANCE CLOUDY (CLEAR); BILIRUBIN NEGATIVE (NEGATIVE); COLOR BROWN (YELLOW); GLUCOSE NEGATIVE (NEGATIVE); KETONE NEGATIVE (NEGATIVE); NITRITE NEGATIVE (NEGATIVE); PROTEIN 2+ mg/dL (NEGATIVE); SPECIFIC GRAVITY 1.015 (1.005-1.020); UROBILINOGEN NORMAL (NORMAL)
[2017-03-26 19:18] LABS: BACTERIA MODERATE /hpf (NONE SEEN); EPITHELIAL CELLS 0-5 /hpf (0-5); MUCUS <1+ /lpf (NONE SEEN); RED CELLS - URINE >50 /hpf (0-5)
--- NOTE | 2017-03-26 20:08 | NUR ---
PT IS RESTING IN BED WITH EYES CLOSED. AWAKENS EASILY TO VERBAL STIMULI. TURNING SELF IN BED PRN. IV INFUSING TO LEFT CHEST WITHOUT DIFFICULTY. CHEST TUBE INTACT TO CONTINUOUS SUCTION. ZAMORA CATH PATENT AND DRAINING DARK [place] URINE TO A GRAVITY BAG. PT REQUESTED LIGHTS OUT IN ROOM, AND CURTAIN PULLED TO KEEP OUT WAHL LIGHTS. SR'S ARE UP X 2 IN BED. SITTER AT BEDSIDE.
--- NOTE | 2017-03-26 21:04 | NUR ---
PTS NIECE AND NEPHEW HERE TO SEE PT. VISITED FOR ABOUT 10 MINUTES. PT AWAKE AND CONVERSING WITH THEM.
--- NOTE | 2017-03-26 22:34 | NUR ---
PT ASSISTED TO USE BEDPAN. NO BM NOTED.
--- NOTE | 2017-03-26 23:55 | NUR ---
PT AWOKE STATING HE COULD NOT SLEEP AND WAS WORRIED HE WOULD PULL HIS CATHETER AND GET IT BLEEDING. PT ASSURED HIS URINE WAS CLEARING UP. ALL LIGHTS TURNED OFF TO ALLOW FOR BETTER SLEEPING.
[2017-03-27] VITALS (24 sets, daily range): BP systolic 93–134; BP diastolic 55–86
--- NOTE | 2017-03-27 01:58 | NUR ---
PT IS RESTING QUIETLY IN BED WITH EYES CLOSED. RESPS ARE EVEN AND UNLABORED. NO ACUTE DISTRESS NOTED.
--- NOTE | 2017-03-27 03:17 | NUR ---
PT AWOKE AND REQUESTED SOMETHING FOR DRY LIPS. LIP BALM APPLIED.
--- NOTE | 2017-03-27 05:54 | NUR ---
RESTING IN BED WITH EYES CLOSED.
[2017-03-27 06:23] LABS: WBC 21.5 10x3/uL (4.8-10.8)
[2017-03-27 06:24] LABS: HEMOGLOBIN 9.7 g/dL (13.5-17.5); MCH 28.9 pg (26.0-34.0); MCHC 32.3 g/dL (31.0-37.0); MCV 89.3 fL (80.0-100.0); MEAN PLATELET VOLUME 8.7 fL (7.4-10.4); PLATELET COUNT 409 10x3/uL (130-400); RBC 3.36 10x6/uL (4.20-6.10); RDW 14.2 % (11.5-14.5)
[2017-03-27 06:37] LABS: CALC OSMOLALITY 286 mosm/kg (275-300); CALCIUM 8.4 mg/dL (8.5-10.1); CARBON DIOXIDE 27.3 mmol/L (21.0-32.0); CHLORIDE - SERUM 103 mmol/L (98-107); GLUCOSE 125 mg/dL (74-106); MAGNESIUM - SERUM 2.2 mg/dL (1.8-2.4); POTASSIUM - SERUM 4.1 mmol/L (3.5-5.1); SODIUM 140 mmol/L (136-145); UREA NITROGEN 33 mg/dL (7-18); eGFR NON AFRICAN AMERICAN 75 mL/min (90-120)
[2017-03-27 06:50] LABS: LYMPHOCYTES 7 % (15-50); MONOCYTES 2 % (2-11); NEUTROPHILS 91 % (40-80); PLATELET ESTIMATE NORMAL
--- NOTE | 2017-03-27 07:27 | NUR ---
UP IN BED RESTING AT THIS TIME, RESPIRATIONS STEADY AND UNLABORED. NO ACUTE DISTRESS NOTED. PT DENIES ANY NEEDS. HEART RATE NOTED AT 87 AFIB. CHEST TUBE AND ZAMORA IN PLACE. WILL CONTINUE PLAN OF CARE.
--- NOTE | 2017-03-27 09:24 | NUR ---
UP IN CHAIR AT THIS TIME ASSISTED BY PHYSICAL THERAPY. NO ACUTE DISTRESS NOTED. CONTINENT BOWEL MOVEMENT, SMALL BROWN, FORMED. WILL CONTINUE PLAN OF CARE.
--- NOTE | 2017-03-27 09:39 | NUR ---
ZAMORA NOTED TO BE [place] WITH BLOOD ESPECIALLY AFTER TRANSFERRING FROM BED TO CHAIR BESIDE BED. ASSESSED ZAMORA INSERTION SITE, NOTED AREA TO HAVE SOME DARK DRIED BLOOD AROUND IT. ZAMORA CARE PROVIDED AT THIS TIME. OLD STAT LOCK NOTED TO BE PULLING ON PT ESPECIALLY DURING REPOSITIONING AND STANDING UP TO TRANSFER. OLD STAT LOCK DC AND NEW STAT LOCK PLACED IN AREA WHICH WILL NOT PULL ON PT. PT UP IN CHAIR VISITING WITH . DENIES ANY NEEDS. NO ACUTE DISTRESS NOTED. WILL CONTINUE PLAN OF CARE.
--- NOTE | 2017-03-27 10:07 | NUR ---
INCENITIVE SPIROMETER USED WITH PT QH. PT EFFORTS NOTED FROM 750-1000. ALSO PT ENCOURAGED TO TURN, COUGH, DEEP BREATHE QH. WILL CONTINUE PLAN OF CARE.
--- NOTE | 2017-03-27 11:02 | NUR ---
RESTING WITH EYES CLOSED AT THIS TIME. RESPIRATIONS STEADY AND UNLABORED. NO ACUTE DISTRESS NOTED. PT COMPLAINT OF FEELING COLD, WARM BLANKETS PROVIDED; TEMP 98.1. AWAKENS EASILY WHEN SPOKEN TO. UP IN CHAIR BESIDE BED. NURSE IN ROOM WITH PT AT ALL TIMES FOR 1:1 OBSERVATION FOR PT SAFETY. WILL CONTINUE PLAN OF CARE.
--- NOTE | 2017-03-27 11:41 | NUR ---
UP IN CHAIR BESIDE BED EATING LUNCH AT THIS TIME WITH SET UP ASSIST. PT ABLE TO FEED SELF. NO ACUTE DISTRESS NOTED. WILL CONTINUE PLAN OF CARE.
--- NOTE | 2017-03-27 12:36 | NUR ---
ASSISTED TO BEDSIDE TOILET VIA MODERATE ASSIST X 2 PERSON. CONTINENT EXTRA SMALL FORMED (PASTE CONSISTENCY) BROWN BOWEL MOVEMENT NOTED. WILL CONTINUE PLAN OF CARE.
--- NOTE | 2017-03-27 12:45 | NUR ---
LATE ENTRY: NOTED PTS UPSET AT PT AT THIS TIME STATING HE DID NOT EAT ENOUGH FOOD FOR LUNCH. SHE STATED TO PT "ARE YOU EVEN TRYING TO GET BETTER?" AND TOLD PT "I AM NOT GOING TO COME UP HERE ANYMORE." PTS DAUGHTER WAS ALSO IN ROOM AT TIME AND SPOKE WITH PTS AND WAS ABLE TO CALM PTS DOWN. PT ATE HALF OF HIS VEGETABLE SOUP, 3 BITES OF MASHED POTATOES, AND 1 BITE OF PIE FOR LUNCH. PT STATED HE WAS FULL AND DID NOT WANT ANY MORE TO EAT FOR LUNCH. WILL CONTINUE TO OFFER SNACKS.
--- NOTE | 2017-03-27 13:10 | NUR ---
ASSISTED PT BACK TO BED FROM BEDSIDE CHAIR VIA MODERATE ASSIST X 2 PERSON ASSIST. PT UP IN BED AT THIS TIME, PT STATED COMFORT. RESTING NOW, EYES CLOSED, RESPIRATIONS STEADY AND UNLABORED. AWAKENS EASILY WHEN SPOKEN TO. NO ACUTE DISTRESS NOTED. WILL CONTINUE PLAN OF CARE.
--- NOTE | 2017-03-27 13:26 | NUR ---
PT ABLE TO ANSWER QUESTIONS TO ASSESS ORIENTATION STATUS APPROPIATELY. NOTED PT COMPLAINT OF DISCOMFORT TO BACK. PT RECIEVES PRN TYLENOL FOR PAIN. PT IN BED VISITING WITH FAMILY. WILL CONTINUE PLAN OF CARE.
--- NOTE | 2017-03-27 14:29 | NUR ---
PT IN BED REPOSITIONS SELF FREQUENTLY STATING HE IS TRYING TO GET COMFORTABLE. PT ASSISTED WITH TURNING BY STAFF AND PILLOWS. PT TURNED ON BACK, STATES IS MORE COMFORTABLE NOW. WILL CONTINUE PLAN OF CARE.
--- NOTE | 2017-03-27 14:49 | NUR ---
RESTING CONFORTABLY AT THIS TIME. RESPIRATIONS STEADY AND UNLABORED. NO ACUTE DISTRESS NOTED. AWAKENS EASILY WHEN SPOKEN TO. WILL CONTINUE PLAN OF CARE.
--- NOTE | 2017-03-27 15:16 | NUR ---
PER DR CORNELIUS; CALL DR RIVAS TO SEE IF DR RIVAS WANTS TO ADD A ANTIINFLAMMATORY SUCH IUBPROFEIN. SPOKE WITH DR RIVAS, ORDERS RECIEVED TO CALL NEURO AND SEE IF THEY WANT TO DO ANYTHING ALSO ORDER FOR TORADOL 30MG NOW AND THEN 15MG Q6H PRN. WILL PLACE ORDERS AND CALL NEURO.
--- NOTE | 2017-03-27 15:24 | NUR ---
SPOKE WITH DR TANNER, HE STATED HE WOULD BE BY TO SEE PT LATER TODAY BUT TO ALSO START NEURONTIN 300MG PO TID. WILL PLACE ORDERS.
--- NOTE | 2017-03-27 16:30 | NUR ---
AT THIS TIME PTS NOTED UPSET STATING SHE DID NOT FEEL THAT STAFF HAD BEEN ADEQUATLY TAKING CARE OF PTS PAIN LEVEL. PT AT THIS TIME RESTING WITH EYES CLOSED RESPIRATIONS STEADY AND UNLABORED RATE. NO GRIMACING OR OTHER S/S PAIN NOTED. NOTIFIED PTS THAT DR RIVAS AND DR TANNER BOTH HAD RECENTLY PLACED NEW MEDICATION ORDERS TO HELP PT WITH DISCOMFORT. ALSO NOTIFIED PTS THAT DR TANNER HAD STATED HE WILL ROUND TO SEE PT LATER TODAY AND MAKE ANY FURTHER NECESSARY DECISIONS TO HELP WITH PTS PAIN LEVEL. PTS REQUESTED FOR STAFF TO HAVE DR TANNER CALL HER WHEN PHYSICIAN ROUNDS. WILL NOTIFY DR TANNER OF THIS WHEN HE COMES TO SEE PT. ALSO TEACHING PERFORMED WITH PTS THAT PT DOES NOT CURRENTLY EXHIBIT ANY S/S OF PAIN SUCH FACIAL GRIMACING OR INCREASED BLOOD PRESSURE. ALSO AT THIS TIME PTS DAUGHTER IS IN ROOM AND SHE HAD STATED THAT SHE IS SATISFIED WITH PTS PAIN CONTROL AND THAT PTS IS "OVERLY DRAMATIC." PT UP IN BED RESTING WITH EYES CLOSED. RESPIRATIONS STEADY AND UNLABORED. AWAKENS EASILY WHEN SPOKEN TO. NO ACUTE DISTRESS NOTED. WILL CONTINUE PLAN OF CARE.
--- NOTE | 2017-03-27 16:32 | NUR ---
WILL ADMIN ORDERED NEURONTIN WHEN RECIEVES FROM PHARMACY.
--- NOTE | 2017-03-27 17:07 | NUR ---
UP IN BED EATING SUPPER WITH ASSIST FROM DAUGHTER. ABLE TO FEED SELF WITH SET UP ASSIST AND ALSO REQUIRES ENCOURAGING TO EAT. DENIES ANY NEEDS AT THIS TIME. WILL CONTINUE PLAN OF CARE.
--- NOTE | 2017-03-27 18:26 | NUR ---
DR TANNER HERE SEEING PT. NOTIFIED THAT PTS WISHES TO SPEAK WITH HIM. DR TANNER ASKED FOR NURSE TO GIVE HIM PTS 'S NUMBER AND HE WOULD CALL HER BACK IN A LITTLE BIT. NO ACUTE DISTRESS NOTED. WILL CONTINUE PLAN OF CARE.
--- NOTE | 2017-03-27 19:40 | NUR ---
PT AOX4, FOLLOWING COMMANDS. STATES HE IS "FEELING BETTER" TODAY. RESPIRATIONS UNLABORED, LUNG SOUNDS CLEAR/DIMINISHED. PRODUCTIVE COUGH PRESENT, WHITE SPUTUM. COUGH/DB WITH GOOD EFFORT. AFIB ON MONITOR, PERIPHERAL PULSES PRESENT. BOWEL SOUNDS ACTIVE IN ALL QUADRANTS. ZAMORA CATH INTACT, GOMEZ AREA CLEAN AND DRY. LEFT LATERAL CHEST TUBE INTACT TO 20CM SUCTION WITH A SMALL AIR LEAK NOTED, DRSG CDI. PT REPOSITIONED IN BED FOR COMOFORT. VSS, PT RESTING COMFORTABLY AT THIS TIME. DENIES FURTHER NEEDS. CONTINUE 1:1 NURSING CARE.
--- NOTE | 2017-03-27 20:50 | NUR ---
C/O PAIN 12/31, PRN TYLENOL GIVEN PER REQUEST. COUGH/DB WITH GOOD EFFORT. COMPLETED I.S. PULLING UP TO 1000 X10. VSS. REPOSITIONED FOR COMFORT. DENIES FURTHER NEEDS AT THIS TIME. 1:1 NURSING CARE IN PROGRESS.
--- NOTE | 2017-03-27 21:50 | NUR ---
PT C/O PAIN 10 AFTER ADMINISTRATION OF TYLENOL. PT REQUESTS SOMETHING ELSE FOR PAIN. PRN TORADOL GIVEN. VSS, PT ALERT AND ORIENTED. PT REPOSITIONED FOR COMFORT. CONTINUE 1:1 NURSING CARE.
--- NOTE | 2017-03-27 23:03 | NUR ---
REASSESSMENT COMPLETE, NO NEW FINDINGS AT THIS TIME. COUGH/DB WITH GOOD EFFORT. COMPLETED I.S. PULLING UP TO 1000. PT REPOSITIONED WITH A PARTIAL LINEN CHANGE. HOB @ 30 DEGREES. VSS, DENIES FURTHER NEEDS AT THIS TIME. 1:1 NURSING CARE IN PROGRESS.
[2017-03-28] VITALS (32 sets, daily range): BP systolic 76–116; BP diastolic 44–71
--- NOTE | 2017-03-28 01:00 | NUR ---
PT REPOSITIONED FOR COMFORT, BONY PROMINENCES BRIDGED. VSS, RESTING WITH EYES CLOSED. CPOC.
--- NOTE | 2017-03-28 03:27 | NUR ---
REASSESSMENT COMPLETE, NO NEW CHANGES AT THIS TIME. PT ALERT AND ORIENTED. COUGH/DB WITH GOOD EFFORT. PT REPOSITIONED IN BED FOR COMFORT. FRESH WATER TO BEDSIDE. VSS. 1:1 NURSING IN PROGRESS.
--- NOTE | 2017-03-28 04:33 | NUR ---
PORTABLE CHEST XRAY COMPLETED, TOLERATED WELL. REPOSITIONED IN BED FOR COMFORT.
--- NOTE | 2017-03-28 05:57 | NUR ---
TOTAL LINEN CHANGE AND BATH COMPLETED. PT POSITIONED IN BED WITH BONY PROMINENCES BRIDGED. VSS, PT RESTING COMFORTABLY AT THIS TIME. CONTINUE 1:1 NURSING CARE.
[2017-03-28 06:24] LABS: HEMATOCRIT 29.1 % (42.0-54.0); HEMOGLOBIN 9.4 g/dL (13.5-17.5); MCH 28.8 pg (26.0-34.0); MCHC 32.3 g/dL (31.0-37.0); MCV 89.3 fL (80.0-100.0); MEAN PLATELET VOLUME 8.6 fL (7.4-10.4); RBC 3.26 10x6/uL (4.20-6.10); RDW 14.4 % (11.5-14.5)
[2017-03-28 06:38] LABS: ALBUMIN 1.7 g/dL (3.4-5.0); ANION GAP 13.7 mmol/L (8-16); BILIRUBIN - TOTAL 0.61 mg/dL (0.2-1.3); CALCIUM 8.4 mg/dL (8.5-10.1); CARBON DIOXIDE 26.7 mmol/L (21.0-32.0); CREATININE - SERUM 1.1 mg/dL (0.6-1.3); POTASSIUM - SERUM 4.4 mmol/L (3.5-5.1); PROTEIN - SERUM 5.7 g/dL (6.4-8.2)
--- NOTE | 2017-03-28 07:15 | NUR ---
NOTED PTS CHEST TUBE COLLECTION CONTAINER IS FULL, HOSIERY OPERATOR HAS BEEN CALLED AND NOTIFIED AND SHE STATES SHE HAS ONE ON ITS WAY AND WILL BRING IT SHORTLY. WAITING FOR NEW COLLECTION CONTAINER AT THIS TIME.
--- NOTE | 2017-03-28 07:23 | NUR ---
LYING IN BED AT THIS TIME RESTING. PT AWAKS EASILY WHEN SPOKEN TO THEN GOES BACK TO SLEEP. RESPIRATIONS STEADY AND UNLABORED. NO ACUTE DISTRESS NOTED. WILL CONTINUE PLAN OF CARE.
--- NOTE | 2017-03-28 07:53 | NUR ---
ASSISTED PT WITH BREAKFAST VIA SET UP ASSIST. PT ATE 2 PIECES OF MOTTA, HALF OF HIS EGGS, A 4 BITES OF MIXED FRUIT, ONE BITE OF CREAM OF WHEAT, AND DRANK ALL HIS MILK AND GRAPE JUICE. PT THEN STATED HE WAS DONE AND DID NOT WANT ANYMORE, ENCOURAGED PT TO EAT 2 MORE BITES OF EGGS, PT ATE 2 MORE BITES OF EGGS AND STATED HE WAS FINISHED. WILL CONTINUE TO OFFER SNACKS. WILL CONTINUE PLAN OF CARE.
--- NOTE | 2017-03-28 08:24 | NUR ---
NEW DRAINAGE COLECTION CONTAINER CHANGED AND PLACED AT THIS TIME.
--- NOTE | 2017-03-28 08:42 | NUR ---
BP 81/44 WITH MAP 62. HEART RATE 114 AFIB. PT RESTING AT THIS TIME. RESPIRATIONS STEADY AND UNLABORED. PT STATES HE FEELS "ALRIGHT" WHEN ASKED. DENIES ANY NEEDS AT THIS TIME. WILL CONTINUE TO OBSERVE.
--- NOTE | 2017-03-28 09:39 | NUR ---
FLOWERS NOTIFIED OF PTS BLOOD PRESSURE AND HEART RATE, STATED TO GO AHEAD WITH DR GUDINO ORDERS TO HOLD THIS DOSE OF METOPROLOL AND ADMIN 250ML NS BOLUS. WILL CONTINUE PLAN OF CARE.
--- NOTE | 2017-03-28 10:40 | NUR ---
UP IN CHAIR BESIDE BED AT THIS TIME ASSISTED BY PHYSICAL THERAPY AND NURSING STAFF. NO ACUTE DISTRESS NOTED. CHEST TUBE AND ZAMORA DRAINING WELL AND IN PLACE. WILL CONTINUE PLAN OF CARE.
--- NOTE | 2017-03-28 11:22 | NUR ---
1102: PTS BP 76/49, MAP 59. PHYSICAL THERAPY CALLED TO ASSIST PT BACK TO BED TO SEE IF CAN HELP PTS BLOOD PRESSURE RISE. 1117: PT ASSISTED BACK TO BED, BLOOD PRESSURE NOW 99/63 WITH MAP 71, HEART RATE 107 AFIB. ASSISTED BACK TO BED WITH ASSIST FROM PHYSICAL THERAPY AND NURSING STAFF. PT LYING IN BED AT THIS TIME. NO ACUTE DISTRESS NOTED. VISITING WITH . WILL CONTINUE PLAN OF CARE.
--- NOTE | 2017-03-28 11:36 | NUR ---
UP IN BED EATING LUNCH WITH ASSIST FROM . BLOOD PRESSURE 96/62 MAP 69 WITH PULSE RATE OF 100 AFIB. NO ACUTE DISTRESS NOTED. WILL CONTINUE PLAN OF CARE.
--- NOTE | 2017-03-28 12:40 | NUR ---
DR RIVAS NOTIFIED THAT AFTER PTS 250ML BOLUS HIS BLOOD PRESSURE SUSTAINED AT 103/56 FOR AN HOUR AND IS NOW 85/45 WITH MAP 59.
--- NOTE | 2017-03-28 14:40 | NUR ---
CONSENTS OBTAINED BY PTS FOR MIDLINE PLACEMENT PER DR RIVAS REQUEST.
--- NOTE | 2017-03-28 15:22 | NUR ---
IV PLACED PER ORDERS TO RT AC, 20 G, FLUSHES WELL. WILL DC CVL SOON PER DR RIVAS ORDERS.
--- NOTE | 2017-03-28 15:48 | NUR ---
CHEST TUBE DRESSING CHANGED AT THIS TIME PER ORDERS. NO REDNESS OR DRAINAGE NOTED TO SITE. PT RESTING, LYING ON RT SIDE. RESPIRATIONS STEADY AND UNLABORED RATE. AWAKENS EASILY WHEN SPOKEN TO. NO ACUTE DISTRESS NOTED. WILL CONTINUE PLAN OF CARE.
--- NOTE | 2017-03-28 17:07 | NUR ---
CVL TO LT SUBCLAVIAN DC AT THIS TIME PER DR RIVAS ORDERS. 2 SUITURES DC BEFORE DC OF CVL, PRESSURE APPLIED FOR 5 MIN THEN PRESSURE DRESSING APPLIED TO SITE. DRESSING CDI. IV FLUIDS AND TUBING CHANGED AND IV FLUIDS NOW RUNNING TO LT AC. SITE FLUSHES WELL. WILL CONTINUE PLAN OF CARE.
--- NOTE | 2017-03-28 17:26 | NUR ---
UP IN BED EATING SUPPER AT THIS TIME VIA SET UP ASSIST. NO ACUTE DISTRESS NOTED. PT DENIES ANY NEEDS. WILL CONTINUE PLAN OF CARE.
--- NOTE | 2017-03-28 17:42 | NUR ---
PT ATE 25% OF SUPPER; ATE HALF OF CHICKEN SALAD, A FEW GRAPES, A FEW BITES OF MERAZ COBBLER, ALL OF HIS GLUCERNA, AND 50ML MILK. LYING IN BED AT THIS TIME. DENIES ANY NEEDS. STATES HE IS FULL AND DOES NOT WANT ANY MORE. WILL KEEP TRAY FOR NOW IN CASE PT DECIDES HE WANTS MORE LATER. WILL CONTINUE PLAN OF CARE.
--- NOTE | 2017-03-28 19:30 | NUR ---
REC'D PT RESTLESS IN BED, COMPLAINS OF LEFT SIDE "HURTING SOMETHING TERRIBLE", PREVIOUS NURSE JUST ADMINISTERED TORADOL COMING ON SHIFT, PT ORIENTED AT THIS TIME, LEFT A/C PIV WITH PLASMALYTE @ 30CC/HR, LEFT LATERAL DRSG CDI EXTENDING TO BACK, LEFT LATERAL CT TO 20 CM H2O SUCTION WITH SEROSANGUINOUS DRAINAGE NOTED, DRSG CDI, ZAMORA PATENT DRAINING CONCENTRATED URINE, PT MAEE, ASSISTED TO PT REPOSITION FOR COMFORT, SR UP X 2, NURSE IN DOORWAY.
--- NOTE | 2017-03-28 20:00 | NUR ---
PT ASKING ABOUT PAIN MEDICATTION, INFORMED IT WAS GIVEN EARLIER, REQUESTING TYLENOL, TYLENOL GIVEN AT 1800 EXPLAINED THIS TO PT, VERBALIZES UNDERSTANDING.
--- NOTE | 2017-03-28 20:30 | NUR ---
EVENING MEDS GIVEN ORDERED, PT SWALLOWED WITHOUT DIFFICULTY.
--- NOTE | 2017-03-28 21:00 | NUR ---
PT PULLING @ CT DRSG, STATES "IS IT NOT TIME FOR THAT TO COME OFF", LEFT CT DRSG CHANGED, SITE CLEANED WITH BETADINE, DRAIN SPONGE AND 4X4'S APPLIED, COVERED WITH LARGE TEGADERM, PT REPOSITIONED FOR COMFORT, EXPLAINED TO PT THAT DRSG MUST REMAIN ON, VERBALIZES UNDERSTANDING, PT ELEM, PLACED HEARING AIDS IN AND CONVERSATION REPEATED REGARDING DRSG.
--- NOTE | 2017-03-28 21:13 | NUR ---
PT STATES THAT HEARING AIDS NEED NEW BATTERIES, REMOVED BOTH AND PLACED ON BS TABLE, STATES "I WILL PUT NEW BATTERIES IN THEM TOMORROW, WILL MONITOR PT CLOSELY FOR CHANGES.
--- NOTE | 2017-03-28 22:30 | NUR ---
PT RESTING ON SIDE EYES CLOSED, RESP EVEN AND UNLABORED, BP LABILE AT TIMES, WILL MONITOR CLOSELY FOR CHANGES.
--- NOTE | 2017-03-28 23:25 | NUR ---
PT COMPLAINS OF LEFT SIDED PAIN, TYLENOL 1000MG GIVEN PO, PT ASSISTED TO POSITION ONTO RIGHT SIDE SUPPORTED WITH PILLOWS.
[2017-03-29] VITALS (24 sets, daily range): BP systolic 77–132; BP diastolic 40–66
--- NOTE | 2017-03-29 00:44 | NUR ---
RT AT BS AFTER BREATHING TX, PT PULLING 750-1000 ON IS, TALKING IN SLEEP AT TIMES, BP REMAINS LABILE
--- NOTE | 2017-03-29 02:00 | NUR ---
SLEEPING AT INTERVALS, VSS, WILL CONT TO MONITOR CLOSELY FOR CHANGES.
--- NOTE | 2017-03-29 03:20 | NUR ---
REASSESSMENT COMPLETED, NO CHANGES FROM PREVIOUS ASSESSMENT, PT COMPLAINS OF SEVERE LEFT SIDE PAIN, RATING "10" ON 0-10 PAIN SCALE, 15MG TORADOL GIVEN SLOW IVP, WILL MONITOR CLOSELY FOR CHANGES.
--- NOTE | 2017-03-29 03:45 | NUR ---
RADIOLOGY AT BS FOR AM CXR, PT REPOSITIONED FOR COMFORT, REPORTS PAIN HAS IMPROVED "A LITTLE"
--- NOTE | 2017-03-29 05:48 | NUR ---
LAB AT FOR AM LAB DRAW
[2017-03-29 05:53] LABS: HEMATOCRIT 28.6 % (42.0-54.0); HEMOGLOBIN 9.3 g/dL (13.5-17.5); MCH 29.1 pg (26.0-34.0); MCHC 32.5 g/dL (31.0-37.0); MCV 89.4 fL (80.0-100.0); MEAN PLATELET VOLUME 8.7 fL (7.4-10.4); RBC 3.2 10x6/uL (4.20-6.10); RDW 14.3 % (11.5-14.5); WBC 39.5 10x3/uL (4.8-10.8)
--- NOTE | 2017-03-29 06:00 | NUR ---
ZAMORA CARE PROVIDED, PT TOLERATED WELL, PT REPOSITIONED FOR COMFORT, DENIES NEEDS AT THIS TIME, VSS.
[2017-03-29 06:11] LABS: ALBUMIN 1.6 g/dL (3.4-5.0); ANION GAP 11.1 mmol/L (8-16); BILIRUBIN - TOTAL 0.62 mg/dL (0.2-1.3); CALCIUM 8.4 mg/dL (8.5-10.1); CARBON DIOXIDE 27.3 mmol/L (21.0-32.0); CREATININE - SERUM 1.3 mg/dL (0.6-1.3); POTASSIUM - SERUM 4.4 mmol/L (3.5-5.1); PROTEIN - SERUM 5.6 g/dL (6.4-8.2)
--- NOTE | 2017-03-29 07:15 | NUR ---
REPORT RECIEVED FROM SALES RECRUITER NURSE. PT RESTING IN BED QUIETLY. ASSESSMENT COMPLETE PER FLOWSHEET. REFER FOR DETAILS. VSS. NO S/SX OF ACUTE DISTRESS NOTED AT THIS TIME. WILL MONITOR FOR CHANGES.
--- NOTE | 2017-03-29 08:15 | NUR ---
ASSISTED TO RECLINER WITH MODERATE ASSIST REQUIRED. BEDSIDE TABLE WITH BREAKFAST TRAY PLACED IN REACH. CALL LIGHT IN HAND. DENIES FURTHER NEEDS. WI CONT TO ASSESS.
--- NOTE | 2017-03-29 09:47 | NUR ---
NUTRITION F/U CHART REVIEWED, PT VISIT. TOLERATING REG DIET, PT REPORTS ~ 50% INTAKE BREAKFAST. UP TO BEDSIDE CHAIR. RD FOLLOWING
--- NOTE | 2017-03-29 11:30 | NUR ---
ASSISTED TO BED. PICC LINE NURSE AT BEDSIDE TO PLACE MIDLINE.
--- NOTE | 2017-03-29 12:00 | NUR ---
UNSUCCESSFUL WITH ATTEMPT OF MIDLINE. PICC LINE NURSE STATED SHE WOULD BE BACK AT 1500.
--- NOTE | 2017-03-29 12:55 | NUR ---
TORADOL ADMINISTERED PER EMAR. PT RESTLESS AND UNCOMFORTABLE. WILL REASSESS PAIN.
--- NOTE | 2017-03-29 14:15 | NUR ---
PT RESTING QUIETLY WITH EYES CLOSED. RESP EVEN AND UNLABORED. VSS. WILL CONT TO ASSESS.
--- NOTE | 2017-03-29 15:00 | NUR ---
ASSISTED TO RECLINER FOR DINNER. TOLERATED WELL. AT BEDSIDE.
--- NOTE | 2017-03-29 17:30 | NUR ---
ASSISTED BACK TO BED. CALL LIGHT PLACED IN REACH. VSS. WILL CONT TO ASSESS.
--- NOTE | 2017-03-29 19:30 | NUR ---
REPORT RECV'D. ASSESSMENT COMPLETED. SEE FLOW SHEET FOR FURTHER DETAILS. PT POASITIONED FOR COMFORT. DENIES ANY NEEDS. WILL CONTINUE TO MONITOR PT.
--- NOTE | 2017-03-29 21:00 | NUR ---
NO VISITORS AT THIS TIME. PM MEDS GIVEN. POSITIONED FOR COMFORT. DENIES ANY NEEDS WILL CONTINUE TO MONITOR.
--- NOTE | 2017-03-29 23:00 | NUR ---
REASSESSMENT COMPLETED. NO ACUTE CHANGES. SEE FLOW SHEET FOR FURTHER DETAILS. PT POSITIONED FOR COMFORT WILL CONTINUE TO MONITOR PT.
[2017-03-30] VITALS (12 sets, daily range): BP systolic 84–117; BP diastolic 46–68
--- NOTE | 2017-03-30 01:00 | NUR ---
PT RESTING WITH NO SIGNS OF DISTRESS. WILL CONTINUE TO MONITOR PT.
--- NOTE | 2017-03-30 03:00 | NUR ---
REASSESSMENT COMPLETED. NO CHANGES AT THIS TIME. SEE FLOW SHEET FOR FURTHER DETAILS. PT POSITIONED FOR COMFORT WILL CONTINUE TO MONITOR PT.
--- NOTE | 2017-03-30 05:06 | NUR ---
PT RESTING WITH NO SIGNS OF DISTRESS. BED IN LOW POSITION. CALL LIGHT IN REACH. POSITIONED FOR COMFORT, WILL CONTINUE TO MONITOR PT.
[2017-03-30 06:10] LABS: BASOPHILS 0 % (0-2); EOSINOPHILS 0.5 % (0-7); HEMOGLOBIN 9.3 g/dL (13.5-17.5); LYMPHOCYTES 2.9 % (15-50); MCH 28.7 pg (26.0-34.0); MCHC 32.1 g/dL (31.0-37.0); MCV 89.5 fL (80.0-100.0); MEAN PLATELET VOLUME 8.8 fL (7.4-10.4); MONOCYTES 8.3 % (2-11); NEUTROPHILS 87.3 % (40-80); PLATELET COUNT 333 10x3/uL (130-400); RBC 3.24 10x6/uL (4.20-6.10); RDW 14.6 % (11.5-14.5)
[2017-03-30 06:59] LABS: ALBUMIN 1.3 g/dL (3.4-5.0); ANION GAP 12.1 mmol/L (8-16); BILIRUBIN - TOTAL 0.5 mg/dL (0.2-1.3); CALCIUM 8.3 mg/dL (8.5-10.1); CARBON DIOXIDE 25.4 mmol/L (21.0-32.0); CREATININE - SERUM 1.1 mg/dL (0.6-1.3); MAGNESIUM - SERUM 2.1 mg/dL (1.8-2.4); POTASSIUM - SERUM 4.5 mmol/L (3.5-5.1); PROTEIN - SERUM 5.4 g/dL (6.4-8.2)
--- NOTE | 2017-03-30 07:15 | NUR ---
REPORT RECIEVED FROM SILK SPOOLER NURSE. PT RESTING IN BED QUCRTY. FULL ASSESSMENT COMPLETE PER FLOWSHEET. REFER FOR DETAILS. CALL LIGHT IN REACH. BED IN LOW POSITION. WILL CONT TO ASSESS.
--- NOTE | 2017-03-30 08:30 | NUR ---
TORODAL AND TYLENOL ADMINISTERED PER ORDERS. PT C/O INCISIONAL PAIN. REPOSITIONED FOR COMFORT. WILL REASSESS. CALL LIGHT IN REACH.
--- NOTE | 2017-03-30 10:12 | NUR ---
Patient Name: ROMI SARABIA Encounter No: [id number] : 1930 Primary Insurance: MEDICARE A & B Planned Disposition: Home with Home Health External Planned Provider: [facility] DCP follow-up note: Patient wanting to go home and resume home health services. He may benefit from additional rehab at discharge - inpatient rehab vs. SNF. Case management will follow and assist as needed. Claribel Sanchez
--- NOTE | 2017-03-30 14:00 | NUR ---
CALLED PHARMACY FOR VANC GTT. STATED THEY WERE MAKING IT AND WOULD TUBE IT.
--- NOTE | 2017-03-30 15:32 | NUR ---
PT TAKEN VIA W/C TO 2136. REPORT GIVEN TO FERNANDO.
--- NOTE | 2017-03-30 17:16 | NUR ---
PT ARRIVED TO ROOM VIA WHEELCHAIR. CHEST TUBE TO LEFT POSTERIOR CHEST WITH 20 WALL SUCTION. ZAMORA DRAINING DARK IN COLOR. LEFT UPPER ARM MIDLINE. AT BEDSIDE. 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 PT HAS DECREASED VISION PER . NO REDNESS OR SORES TO BUTT. PT IS A&OX4. FENTINAL PATCH TO BACK PLACED YESTERDAY. NO NEEDS AT THIS TIME. WILL CONTINUE OT MONITOR
--- NOTE | 2017-03-30 17:47 | NUR ---
PT IN BED AT THIS TIME. AT BEDSIDE. NO NEEDS. WILL CONTINUE OT MONITOR
--- NOTE | 2017-03-30 19:41 | NUR ---
PT IN BED. TURNED OFF TV AND CLOSED DOOR PER REQUEST. DENIES FURTHER NEEDS AT THIS TIME.
[2017-03-31] VITALS (7 sets, daily range): BP systolic 102–140; BP diastolic 56–67
[2017-03-31 05:14] LABS: WBC 32.5 10x3/uL (4.8-10.8)
[2017-03-31 05:15] LABS: BASOPHILS 0.1 % (0-2); EOSINOPHILS 0.4 % (0-7); HEMATOCRIT 31.1 % (42.0-54.0); HEMOGLOBIN 10.1 g/dL (13.5-17.5); IMMATURE GRANULOCYTES 1.5 % (0-5); LYMPHOCYTES 3.5 % (15-50); MCH 29.3 pg (26.0-34.0); MCHC 32.5 g/dL (31.0-37.0); MCV 90.1 fL (80.0-100.0); MEAN PLATELET VOLUME 8.9 fL (7.4-10.4); MONOCYTES 8.5 % (2-11); PLATELET COUNT 397 10x3/uL (130-400); RBC 3.45 10x6/uL (4.20-6.10); RDW 14.5 % (11.5-14.5)
[2017-03-31 05:26] LABS: ALBUMIN 1.5 g/dL (3.4-5.0); BILIRUBIN - TOTAL 0.6 mg/dL (0.2-1.3); CALCIUM 8.2 mg/dL (8.5-10.1); CARBON DIOXIDE 26.3 mmol/L (21.0-32.0); CREATININE - SERUM 1.2 mg/dL (0.6-1.3); MAGNESIUM - SERUM 2.1 mg/dL (1.8-2.4); POTASSIUM - SERUM 4.3 mmol/L (3.5-5.1); PRE-ALBUMIN 11.1 mg/dL (18.0-35.7)
[2017-03-31 05:30] LABS: PHOSPHOROUS 2.2 mg/dL (2.5-4.9)
--- NOTE | 2017-03-31 05:42 | NUR ---
PT LYING IN BED, HOB 35 DEGREES, RESTING COMFORTABLY. CONTINUE TO MONITOR CLOSELY.
--- NOTE | 2017-03-31 07:15 | NUR ---
REPORT RECEIVED. RR ELEAVTED, UNLABORED. CRACKLES CAN BE HEARD WITHOUT AUSCULTATION. PT ABLE TO AMBULATE TO STANDING SCALE FOR WEIGHT CHECK. CHANGED CHEST TUBE DRAINAGE COLLECTION CONTAINER DUE TO IT BEING FULL. PT IS RESTING QUIETLY, WILL CTM.
--- NOTE | 2017-03-31 07:18 | NUR ---
D/C PTS PLASMOLYTE ORDERED IN COMPUTER TO BE D/C ON 03/29 PER . WILL CALL TO CONFIRM ORDER PREVIOUS SHIFT HAD IT CONTINUED AND "UNSURE" ABOUT D/C.
--- NOTE | 2017-03-31 10:30 | NUR ---
CHANGED STAT LOCK. CURRENT STAT LOCK WAS OFF OF PTS LEG. WILL CTM.
--- NOTE | 2017-03-31 10:30 | NUR ---
PT RESTING QUIETLY, ASSISTED PT TO BSC. CHANGED LINENES X2 ASSIST. GAVE MORNING MEDS, WILL CTM.
--- NOTE | 2017-03-31 15:04 | NUR ---
CHANGED MIDLINE DRESSING, STERILE FIELD MAINTIANED. RR ELEVATED. CHEST TUBE DRESSING CHANGED PER ORDERS. FAMILY EXPRESSED EXTREME DISATISFACTION REGARDING CARE. I EXPLAINED THAT I WAS SORRY SHE WAS NOT HAPPY WITH THE CARE. ADDRESSED FAMILY CONCERNS AND SPOKE TO HER ABOUT PT CONDTION FOR OVER 30 MINUTES. WILL CTM.
--- NOTE | 2017-03-31 18:15 | NUR ---
PT RESTING QUIETLY, RR EVEN AND UNLABORED. PT DENIES NEEDS AT THIS TIME. WILL GIVE REPORT ON PT CONDTION FOR THE DAY.
--- NOTE | 2017-03-31 22:00 | NUR ---
ENTERED ROOM, PT LOW DOWN IN BED WITH RESPERATOINS LABORED, OBTAINED ASSISTANCE FROM A SECOND NURSE, PULLED PT UP IN BED USING DRAW PAD, REPOSITIONED FOR COMFORT, O2 AT 2 LITER VIA NC, HOWEVER O2 TUBING WRAPPED AROUND CT TUBING ON LEFT SIDE, UNTANGLED TUBING AND DRAPPED 02 TUBE ON RIGHT SIDE OF BED. DRSG TO CHEST TUBE WAS WADDED UP AND HALF WAY PULLED OFF, NOTICED THAT DRSG WAS ALSO DATED FOR March, DONED STERILE GOVES AND CHANGED DRSG ORDERS STATED, DATED AND TIMED NEW DRSG. WILL CONT TO MONITOR.
--- NOTE | 2017-03-31 23:43 | NUR ---
PATIENT IS RESTLESS. REPORTS PAIN LEVEL A 5 OUT OF 10 AND REFUSES ANY PAIN MEDICATION. HE IS SITTING UP ON THE SIDE OF THE BED FOR 10 MINUTES AND THEN FEELS WORN OUT AND LAYS BACK DOWN. IV IS PATENT DRESSING IS CLEAN DRY INTACT. CHEST TUBE IS IN PLACE AND DRAINING YELLOW DRAINAGE. DRESSING IS CLEAN DRY AND INTACT. URINARY CATHETER IS IN PLACE, URINE IS CONCENTRATED AND DARK YELLOW. ALERT AND ORIENTED, SPEECH IS SLIGHTLY DIFFICULT TO UNDERSTAND. WHEN GIVEN HIS MEDICATIONS PATIENT SHOWS SOME DIFFICULTY SWALLOWING WATER.
--- NOTE | 2017-04-01 00:11 | NUR ---
LAST WAXER AT BEDSIDE, CALL LIGHT IN REACH. WILL CONTINUE WITH PLAN OF CARE. 96 CAF ON TELEMETRY
--- NOTE | 2017-04-01 01:03 | NUR ---
PATIENT SLEEPING WITH MOUTH OPEN. OXYGEN IS ON 2L NASAL CANNULA. PATIENT HAS SCOOTED DOWN IN THE BED, AND IS ITCHING AROUND HIS ZAMORA CATHETER. MOVING AROUND A LOT IN HIS SLEEP.
--- NOTE | 2017-04-01 01:31 | NUR ---
PATIENT SITTING UP IN BED , EATTING ICE CREAM. REPOSITIONED, SCD'S ON, CALL LIGHT IN REACH BED IN LOW POSITION. CLEANED INNER THIGHS AROUND STAT-LOCK. SKIN AROUND STAT LOCK IS IRRITATED WHERE PATIENT HAS BEEN SCRATCHING AT IT. HE IS RESTLESS AND SCOOTING DOWN IN THE BED. COUGH IS UNPRODUCTIVE. CHEST TUBE IS STILL DRAINING YELLOW DRAINAGE.
--- NOTE | 2017-04-01 02:14 | NUR ---
IV TUBING CHANGED AND DATED PER PROTOCOL, VANC INFUSING, NO S/S ADVERSE REACTION NOTED.
[2017-04-01 02:45] VITALS: BP 126/64
--- NOTE | 2017-04-01 02:55 | NUR ---
PATIENT WANTS TO SIT UP IN BED, IS RESTLESS. DRINKS A FEW SIPS OF WATER AND THEN RELAXES AND GOES BACK TO SLEEP. O2 AT 2 L. CHEST TUBE SHOWS YELLOW DRAINAGE. URINE IS DARK YELLOW. LUNG SOUNDS CRACKLES, MOUTH DRY. TELEMETRY SHOWS HEART RATE 85 CONTROLLED A FIB. VANCOMYCIN RUNNING AT 166ML/HR.
[2017-04-01 04:42] VITALS: BP 120/74
--- NOTE | 2017-04-01 04:47 | NUR ---
PATIENT REQUESTS A CAN OF SODA, BUT ASKS THAT IT BE SEALED WHEN HE GETS IT. PATIENT STATES HE IS NOT SURE IF HE WILL "STILL BE HERE TOMORROW". VOICES CONCERN THAT SOMEONE IS TRYING TO GET RID OF HIM, AND AS[facility] TO [facility] KNOW SOMETHING IS WRONG WITH HIS HEALTH. THE STAT LOCK FOR HIS ZAMORA HAD BEEN SCRATCHED OFF. REPLACED STAT LOCK ON OPPOSITE LEG.
--- NOTE | 2017-04-01 04:54 | NUR ---
OBTAINED DAILY WEIGHTS ON STANDING SCALE.
--- NOTE | 2017-04-01 05:49 | NUR ---
BATH AND LINEN CHANGE COMPLETE, REPOSITOINED IN BED FOR COMFORT. BED LOW, CL IN REACH.
[2017-04-01 06:34] LABS: HEMATOCRIT 30.9 % (42.0-54.0); HEMOGLOBIN 9.9 g/dL (13.5-17.5); MCH 28.8 pg (26.0-34.0); MCV 89.8 fL (80.0-100.0); RBC 3.44 10x6/uL (4.20-6.10); RDW 14.7 % (11.5-14.5); WBC 34.7 10x3/uL (4.8-10.8)
[2017-04-01 07:12] LABS: ALBUMIN 1.6 g/dL (3.4-5.0); ALKALINE PHOSPHATASE 121 U/L (46-116); BILIRUBIN - TOTAL 0.62 mg/dL (0.2-1.3); CALC OSMOLALITY 284 mosm/kg (275-300); CALCIUM 8.2 mg/dL (8.5-10.1); CARBON DIOXIDE 25.1 mmol/L (21.0-32.0); CHLORIDE - SERUM 104 mmol/L (98-107); GLUCOSE 117 mg/dL (74-106); POTASSIUM - SERUM 4.7 mmol/L (3.5-5.1); PROTEIN - SERUM 5.5 g/dL (6.4-8.2); SODIUM 139 mmol/L (136-145); UREA NITROGEN 30 mg/dL (7-18); eGFR NON AFRICAN AMERICAN 75 mL/min (90-120)
[2017-04-01 07:15] LABS: ALT (SGPT) 126 U/L (10-68)
--- NOTE | 2017-04-01 08:30 | NUR ---
PATIENT IS CONFUSED, PULLING STAT LOCK OFF CATHETER, WONT KEEP CENTER AISLE CASHIER ON, STONE HAND PULLED ME TO PATIENT ROOM, PATIENT O2 SAT WAS 82% ON 2L/MIN, PATIENT IS A MOUTH BREATHER, PAGED RESPIRATORY AND PUT CANNULA IN PATIENT MOUTH, O2 SAT 90%. PAGED IVON AGUDELO. CPOC
--- NOTE | 2017-04-01 08:45 | NUR ---
PATIENT O2 SAT UP TO 96% ON 2L/MIN VIA NC. RESPIRATORY AT BEDSIDE. CPOC
--- NOTE | 2017-04-01 09:15 | NUR ---
SPOKE WITH DR EVELYN MICHEL NURSE, AND SHE ORDERED TO TURN SUCTION OFF ON CHEST TUBE, SUCTION OFF AT THIS TIME.
--- NOTE | 2017-04-01 09:30 | NUR ---
MORNING MEDICATIONS GIVEN, SEE EMAR. PATIENT DENIES ANY PAIN AT THIS TIME. CPOC. BED LOW AND LOCKED. CALL LIGHT IN REACH.
[2017-04-01 09:45] VITALS: BP 108/65
--- NOTE | 2017-04-01 10:17 | NUR ---
GOT PATIENT TO CHAIR PER REQUEST. PARTIAL ASSIST NEEDED. PATIENT SITTING UP IN CHAIR. CALL LIGHT IN REACH. WILL CONT TOMONITOR. CPOC
--- NOTE | 2017-04-01 12:00 | NUR ---
PATIENT SITTING UP IN CHAIR AT THIS TIME, EATING LUNCH, AT BEDSIDE. DENIES ANY NEEDS AT THIS TIME. CPOC
[2017-04-01 12:30] VITALS: BP 116/71
--- NOTE | 2017-04-01 14:06 | NUR ---
Nutrition Follow Up: Pt was asleep at the time of RD visit. Interview deferred. Pt is eating 29% meal avg on a regular diet. +BM 03/31/17. Wt loss noted. Meds and labs reviewed. Rec continue current diet. Will continue to honor food preferences. RD following.
--- NOTE | 2017-04-01 14:30 | NUR ---
MIDLINE CATHETER DC, PATIENT IS GOING HOME ON HOSPICE. TIP INTACT. NO ISSUES. CPOC
--- NOTE | 2017-04-01 15:55 | NUR ---
NOTIFIED JIM/RN WITH DR. RIVAS VIA PHONE THAT PT IS DISCHARGING HOME WITH HOSPICE CARE.
--- NOTE | 2017-04-01 16:40 | NUR ---
Patient Name: ROMI SARABIA Encounter No: [id number] : 1930 Primary Insurance: MEDICARE A & B Anticipated DC Date: 04-01-2017 Planned Disposition: Home with Hospice External Planned Provider: [facility] DCP follow-up note: CM RECEIVED HOSPICE ORDER, MET WITH PT IN ROOM WHO INSTRUCTED CM TO CALL HIS AND HE DID NOT KNOW WHERE SHE WAS AT. CM CALLED PT'S SPOUSE VIA PHONE, . HIMANSHU REPORTS SPEAKING TO THE DOCTOR REGARDING HOSPICE CARE FOR PT AND SHE WANTS TO TAKE PT HOME WITH HOSPICE. CM DISCUSSED HOSPICE PROVIDERS, SPOUSE REPORTS SHE HAS ALREADY CONTACTED [facility]OSPICE HOME [facility] AND ASKED THAT CM COORDINATE WITH THEM. CM CALLED HOSPICE HOME [phone] SPOKE TO MILANA WHO REPORTS SHE IS FAMILIAR WITH PT AND CAN MAKE ARRANGEMENTS FOR DISCHARGE HOME TODAY. CM FAXED REFERRAL TO [facility] AT [phone]. MILANA AND PT'S SPOUSE MET AT HOSPITAL, EVALUATION COMPLETED, PT'S SPOUSE IN AGREEMENT WITH DISCHARGE HOME TODAY, [facility] TO ADMIT TODAY WHEN PT ARRIVES AT HOME. MILANA ASKED THAT THE PT BE SENT HOME AT 7:30PM AND THE NURSE WILL MEET PT AT HOME FOR ADMIT. CM NOTIFIED WILL AGUDELO. CM FAXED DISCHARGE INFORMATION TO [facility] AT [phone]. PT TO DISCHARGE HOME AT 7:30PM VIA AMBULANCE, [facility] NURSE TO MEET PT AT HOME FOR ADMIT CLINT. Rakan Oconnell, CASE MANGEMENT
--- NOTE | 2017-04-01 17:03 | NUR ---
DR RIVAS HERE. AYANA RN DISCONNECTED CHEST TUBE FROM SUCTION AND ATTACHED TUBE TO ZAMORA DRAINAGE BAG. Leonel THOMAS ALSO TOOK OFF BIG DRESSING ON SIDE. INCISION CLEAN AND DRY NO SIGNS OF INFECTION. INSTRUCTIONS GIVEN TO BY Leonel THOMAS RN. 300 CC OF DARK DRAINAGE NOTED IN CHEST TUBE DRAINAGE. ZAMORA CARE GIVEN. SOME BLOODY DRAINAGE AROUND ZAMORA.
--- NOTE | 2017-04-01 18:44 | NUR ---
SPOKE WITH [facility] FOR TRANSFER. INFORMED PATIENT COULD NOT BE PICKED UP UNTIL 1930. CPOC
--- NOTE | 2017-04-01 18:50 | NUR ---
PATIENT UNABLE TO SIGN PAPERWORK, DC INSTRUCTIONS GIVEN. WAITING ON TRANSPORT. CPOC
--- NOTE | 2017-04-01 19:39 | NUR ---
PT IN BED RESTING. EVEN AND UNLABORED RESPIRATIONS NOTED. AWAITING AMBULANCE TRANSFER TO HOME HOSPICE AT THIS TIME.
--- NOTE | 2017-04-01 21:17 | NUR ---
PT LEFT FLOOR VIA EMS TO HOME HOSPICE
== END 2017-04-01 21:18 | disposition home health service (06) | DRG 826 ==
LOC: D.ER 12:42 → OBSVTIME 16:46 → D.MS 16:46 → D.CVICU 03-16 10:45 → D.MS 03-16 10:45 → D.M2 03-16 10:45 → D.CVICU 03-19 10:29 → D.M2 03-30 15:14
PROVIDERS: Family Medicine; Internal Medicine Cardiovascular Disease; Internal Medicine Pulmonary Disease; Urology; ADMIT Family Medicine
PROC: 0W9B3ZZ Drainage of Left Pleural Cavity, Percutaneous Approach (ICD-10-PCS; 2017-03-17)
PROC: 3E0L3GC Introduction of Other Therapeutic Substance into Pleural Cavity, Percutaneous Approach (ICD-10-PCS; 2017-03-19)
PROC: 0BD Respiratory System, Extraction (ICD-10-PCS; principal; 2017-03-19 07:30)
PROC: 0BCJ0ZZ Extirpation of Matter from Left Lower Lung Lobe, Open Approach (ICD-10-PCS; 2017-03-19 07:30)
PROC: 0BH17EZ Insertion of Endotracheal Airway into Trachea, Via Natural or Artificial Opening (ICD-10-PCS; 2017-03-23)
PROC: 5A1945Z Respiratory Ventilation, 24-96 Consecutive Hours (ICD-10-PCS; 2017-03-23)
DX: C45.7 Mesothelioma of other sites (principal); J96.01 Acute respiratory failure with hypoxia; J96.02 Acute respiratory failure with hypercapnia; J86.9 Pyothorax without fistula; R44.3 Hallucinations, unspecified; E87.2 Acidosis; E46 Unspecified protein-calorie malnutrition; J91.0 Malignant pleural effusion; K21.9 Gastro-esophageal reflux disease without esophagitis; K59.00 Constipation, unspecified; Z87.891 Personal history of nicotine dependence; N40.0 Benign prostatic hyperplasia without lower urinary tract symptoms; Z77.090 Contact with and (suspected) exposure to asbestos; I48.0 Paroxysmal atrial fibrillation; Z79.01 Long term (current) use of anticoagulants; R31.0 Gross hematuria; Z68.25 Body mass index [BMI] 25.0-25.9, adult; J32.9 Chronic sinusitis, unspecified; E78.5 Hyperlipidemia, unspecified; D50.9 Iron deficiency anemia, unspecified